=== PATIENT | male | born 1960 | race African-American/Black ===

== ENCOUNTER 2018-04-15 08:14 | Inpatient (IN) | payer MEDICARE, MEDICAID ==
[~2018-04-15] VITALS: Ht 180.3 cm; Wt 97.5 kg
[~2018-04-15 08:14] MED LIST: AMLO10TA4 PO; CARV12.545 PO; INSULIN; LISI40TA4 PO
[2018-04-15] MEDS ORDERED: SODIUM CHLORIDE 0.9% 1,000 ML IV ONE (10:04)
[2018-04-15 11:08] LABS: BASOPHILS % 1.2 % (0.0-2.0); EOSINOPHILS % 1.1 % (0.0-5.0); HEMATOCRIT. 35.2 % (42.0-52.0); HEMOGLOBIN. 11.6 g/dL (14.0-18.0); LYMPHOCYTES % 23.1 % (20.0-50.0); MEAN CORPUSCULAR HEMOGLOBIN 31.3 pg (28.0-32.0); MEAN CORPUSCULAR VOLUME 95.4 fL (80.0-94.0); MONOCYTES % 7.5 % (2.0-8.0); NEUTROPHILS % 67.1 % (40.0-76.0); PLATELET 160 x1000/uL (130-400); RED BLOOD CELL COUNT 3.69 mill/uL (4.7-6.1); RED CELL DISTRIBUTION WIDTH 14.8 % (11.6-14.6)
[2018-04-15 11:18] LABS: PROTHROMBIN TIME 10.3 sec (9.1-11.1)
[2018-04-15 11:20] LABS: CHLORIDE 113 mEq/L (98-107)
[2018-04-15] MEDS ORDERED: DEXTROSE 50% WATER 50ML SYRINGE IV ONE (11:30)
[2018-04-15] MEDS ORDERED: INSULIN REGULAR (HUMULIN R) 300UNITS/3ML IV ONE (11:30)
[2018-04-15] MEDS ORDERED: CALCIUM CHLORIDE 1GM/10ML SYR IV ONE (11:30)
[2018-04-15] MEDS ORDERED: SODIUM BICARBONATE 8.4% 1 MEQ/ML 50ML SYR IV ONE (11:30)
[2018-04-15] MEDS ORDERED: SODIUM POLYSTYRENE SULFONATE 15 G/60 ML BOT PO ONE (11:30)
[2018-04-15 14:18] LABS: CLARITY URINE CLEAR (CLEAR); KETONES URINE NEGATIVE (NEGATIVE); LEUKOCYTE ESTERASE URINE NEGATIVE (NEGATIVE); NITRITE URINE NEGATIVE (NEGATIVE); OCCULT BLOOD URINE TRACE (NEGATIVE); PH URINE 6.5 (4.5-8.0); PROTEIN URINE 2+ (NEGATIVE); UROBILINOGEN URINE 0.2 E.U./dL (0.2-1.0)
[2018-04-15 14:19] LABS: COLOR URINE PALE YELLOW (YELLOW)
[2018-04-15] MEDS ORDERED: ACETAMINOPHEN 325MG TABLET PO PRN (19:45)
[2018-04-15] MEDS ORDERED: LORAZEPAM 2MG/ML CPJ IV PRN (19:45)
[2018-04-15] MEDS ORDERED: CLONIDINE 0.1MG TABLET PO PRN (19:45)
[2018-04-15] MEDS ORDERED: NA PHOS,M-B/NA PHOS,DI-BA ENEMA 118ML PR PRN (19:45)
[2018-04-15] MEDS ORDERED: DIPHENHYDRAMINE 50MG/ML VIAL IV PRN (19:45)
[2018-04-15] MEDS ORDERED: HYDROCODONE/ACETAMINOPHEN 5/325MG TABLET PO PRN (19:45)
[2018-04-15] MEDS ORDERED: GUAIFENESIN 200MG/10ML SUGAR FREE UDC PO PRN (19:45)
[2018-04-15] MEDS ORDERED: MAGNESIUM/ALUMINUM HYDROXIDE/SIMETHICONE 30ML UDC PO PRN (19:45)
[2018-04-15] MEDS ORDERED: IPRATROPIUM/ALBUTEROL 0.5-3(2.5)MG/3ML NEB INH PRN (19:45)
[2018-04-15] MEDS ORDERED: DOCUSATE SODIUM 100MG CAPSULE PO PRN (19:45)
[2018-04-15] MEDS ORDERED: ONDANSETRON HCL 4MG/2ML INJ IV PRN (19:45)
[2018-04-15] MEDS ORDERED: HYDROMORPHONE HCL/PF 2MG/ML CPJ IV PRN (19:45)
[2018-04-15 21:30] VITALS: BP 149/84
[2018-04-15 22:00] VITALS: BP 149/84
[2018-04-15 23:00] VITALS: BP 182/104
[2018-04-15] MEDS ORDERED: IBUPROFEN 800MG TABLET PO PRN (23:45)
[2018-04-15] MEDS: FUROSEMIDE 20MG TABLET PO SCH (23:45)
[2018-04-15] MEDS ORDERED: CHOL100046 MT (23:48)
[2018-04-15] MEDS ORDERED: FURO20TA4 MT (23:48)
[2018-04-15] MEDS ORDERED: ASPI-1158 MT (23:48)
[2018-04-15] MEDS ORDERED: IBUP-2030 MT (23:48)
[2018-04-16] VITALS: BP 200/99
[2018-04-16 00:12] VITALS: BP 180/97
[2018-04-16] MEDS: CHOLECALCIFEROL (D3) 1000 UNIT TABLET PO SCH ×2 (00:13→08:46)
[2018-04-16] MEDS: AMLODIPINE 10MG TABLET PO SCH ×2 (00:13→08:48)
[2018-04-16] MEDS: CARVEDILOL 12.5MG TABLET PO SCH ×2 (00:14→08:47)
[2018-04-16] MEDS: LISINOPRIL 40MG TABLET PO SCH ×2 (00:14→08:49)
[2018-04-16 01:00] VITALS: BP 149/88
[2018-04-16 02:00] VITALS: BP 148/84
[2018-04-16 06:01] LABS: BASOPHILS % 1.4 % (0.0-2.0); EOSINOPHILS % 1.7 % (0.0-5.0); HEMATOCRIT. 30.4 % (42.0-52.0); HEMOGLOBIN. 10.2 g/dL (14.0-18.0); LYMPHOCYTES % 22.4 % (20.0-50.0); MEAN CORPUSCULAR VOLUME 95.5 fL (80.0-94.0); MEAN PLATELET VOLUME 7.5 fl (7.4-10.4); MONOCYTES % 9.4 % (2.0-8.0); NEUTROPHILS % 65.1 % (40.0-76.0); PLATELET 146 x1000/uL (130-400); RED BLOOD CELL COUNT 3.18 mill/uL (4.7-6.1); RED CELL DISTRIBUTION WIDTH 14.2 % (11.6-14.6)
[2018-04-16 06:26] LABS: CHLORIDE 115 mEq/L (98-107)
[2018-04-16 06:41] LABS: LDL CHOLESTEROL 106 mg/dL (5-100)
[2018-04-16 06:42] LABS: HDL CHOLESTEROL 37 mg/dL (40-59)
[2018-04-16] MEDS: FUROSEMIDE 20MG TABLET PO SCH (08:48)
[2018-04-16] MEDS: DOCUSATE SODIUM 100MG CAPSULE PO SCH ×2 (08:48→17:00)
[2018-04-16] MEDS: ASPIRIN 81MG EC TABLET PO SCH (08:48)
[2018-04-16] MEDS ORDERED: MEDICATION NOT ON FORMULARY EA (Aspirin (Aspirin Ec) 1 TAB) MT SCH (09:00)
[2018-04-16 15:53] LABS: CREATINE KINASE 105 IU/L (39-308)
[2018-04-16 15:54] LABS: CREATINE KINASE MB FRACTION 1.7 ng/mL (0.5-3.6)
[2018-04-16 15:56] LABS: T4 FREE 0.97 ng/dL (0.76-1.46)
[2018-04-16 20:00] VITALS: BP 135/79
[2018-04-16 22:00] VITALS: BP 109/63
[2018-04-16 23:42] LABS: CREATINE KINASE 99 IU/L (39-308)
[2018-04-16 23:43] LABS: CREATINE KINASE MB FRACTION 1.7 ng/mL (0.5-3.6)
[2018-04-17] VITALS: BP 133/85
[2018-04-17] MEDS ORDERED: DEXTROSE 50% WATER 50ML SYRINGE IV PRN (01:45)
[2018-04-17] MEDS: BLOOD SUGAR DIAGNOSTIC STRIP TEST SCH ×4 (07:50→21:00)
[2018-04-17 08:00] VITALS: BP 144/87
[2018-04-17] MEDS: INSULIN LISPRO 100 UNITS/ML SUBCUT SCH ×4 (08:00→21:00)
[2018-04-17] MEDS: CHOLECALCIFEROL (D3) 1000 UNIT TABLET PO SCH (08:52)
[2018-04-17] MEDS: DOCUSATE SODIUM 100MG CAPSULE PO SCH ×2 (08:52→16:05)
[2018-04-17] MEDS: AMLODIPINE 10MG TABLET PO SCH (08:53)
[2018-04-17] MEDS: LISINOPRIL 40MG TABLET PO SCH (08:53)
[2018-04-17] MEDS: ASPIRIN 81MG EC TABLET PO SCH (08:53)
[2018-04-17] MEDS: CARVEDILOL 12.5MG TABLET PO SCH (08:54)
[2018-04-17 08:56] LABS: CREATINE KINASE 117 IU/L (39-308)
[2018-04-17 08:57] LABS: CREATINE KINASE MB FRACTION 1.9 ng/mL (0.5-3.6)
[2018-04-17] MEDS: FUROSEMIDE 20MG TABLET PO SCH (09:03)
[2018-04-17 12:00] VITALS: BP 124/79
[2018-04-17] MEDS ORDERED: SODIUM POLYSTYRENE SULFONATE 15 G/60 ML BOT PO PRN (15:00)
[2018-04-17] MEDS ORDERED: LACTULOSE 20G/30ML UDC PO NR ×2 (15:30→19:30)
[2018-04-17 15:31] LABS: EOSINOPHILS % 2.1 % (0.0-5.0); HEMATOCRIT. 34.9 % (42.0-52.0); HEMOGLOBIN. 11.6 g/dL (14.0-18.0); LYMPHOCYTES % 22.6 % (20.0-50.0); MEAN CORPUSCULAR HEMOGLOBIN 31.6 pg (28.0-32.0); MEAN CORPUSCULAR VOLUME 95.5 fL (80.0-94.0); MEAN PLATELET VOLUME 7.8 fl (7.4-10.4); MONOCYTES % 8.7 % (2.0-8.0); NEUTROPHILS % 65.6 % (40.0-76.0); PLATELET 155 x1000/uL (130-400); RED BLOOD CELL COUNT 3.66 mill/uL (4.7-6.1); RED CELL DISTRIBUTION WIDTH 14.3 % (11.6-14.6)
[2018-04-17 16:00] VITALS: BP 121/78
[2018-04-17 16:05] LABS: HEPATITIS B SURFACE ANTIGEN NEGATIVE
[2018-04-17 16:20] LABS: CLARITY URINE CLEAR (CLEAR); COLOR URINE YELLOW (YELLOW); KETONES URINE NEGATIVE (NEGATIVE); LEUKOCYTE ESTERASE URINE NEGATIVE (NEGATIVE); NITRITE URINE NEGATIVE (NEGATIVE); OCCULT BLOOD URINE NEGATIVE (NEGATIVE); PROTEIN URINE 2+ (NEGATIVE); UROBILINOGEN URINE 0.2 E.U./dL (0.2-1.0)
[2018-04-17 16:35] LABS: HEPATITIS A AB IGM NEGATIVE (NEGATIVE)
[2018-04-17 18:22] LABS: PHOSPHORUS 3.9 mg/dL (2.5-4.9)
[2018-04-18] VITALS: BP 123/64
[2018-04-18 02:12] VITALS: BP 123/64
[2018-04-18 04:00] VITALS: BP 139/71
[2018-04-18 06:51] LABS: BASOPHILS % 0.9 % (0.0-2.0); EOSINOPHILS % 1.8 % (0.0-5.0); HEMOGLOBIN. 10.7 g/dL (14.0-18.0); LYMPHOCYTES % 21.1 % (20.0-50.0); MEAN CORPUSCULAR HEMOGLOBIN 31.9 pg (28.0-32.0); MEAN CORPUSCULAR VOLUME 95.3 fL (80.0-94.0); MEAN PLATELET VOLUME 7.7 fl (7.4-10.4); MONOCYTES % 8.4 % (2.0-8.0); NEUTROPHILS % 67.8 % (40.0-76.0); PLATELET 151 x1000/uL (130-400); RED BLOOD CELL COUNT 3.36 mill/uL (4.7-6.1); RED CELL DISTRIBUTION WIDTH 14.5 % (11.6-14.6)
[2018-04-18] MEDS: BLOOD SUGAR DIAGNOSTIC STRIP TEST SCH ×2 (07:40→12:42)
[2018-04-18] MEDS: INSULIN LISPRO 100 UNITS/ML SUBCUT SCH ×2 (08:10→12:42)
[2018-04-18] MEDS ORDERED: LACTULOSE 20G/30ML UDC PO PRN (09:00)
[2018-04-18] MEDS: ASPIRIN 81MG EC TABLET PO SCH (10:20)
[2018-04-18] MEDS: CARVEDILOL 12.5MG TABLET PO SCH (10:21)
[2018-04-18] MEDS: FUROSEMIDE 20MG TABLET PO SCH (10:21)
[2018-04-18] MEDS: CHOLECALCIFEROL (D3) 1000 UNIT TABLET PO SCH (10:21)
[2018-04-18] MEDS: AMLODIPINE 10MG TABLET PO SCH (10:22)
[2018-04-18] MEDS: DOCUSATE SODIUM 100MG CAPSULE PO SCH (10:22)
[2018-04-18 17:10] VITALS: BP 118/73
[2018-04-19 08:26] LABS: HIV SCREEN 4G Non Reactive (Non Reactive)
[2018-04-23 14:18] LABS: OXALATE UR 24 HR 16 mg/24 hr (7-44); OXALATE URINE 11 mg/L (Undefined)
== END 2018-04-18 18:30 | disposition home or self-care (01) | DRG 640 ==
LOC: ER 08:14 → EDBEDREQ 10:16 → 5EST 12:40 → EDBEDREQ 12:42 → EDBEDREQSVC 12:42 → ENRESERV 19:39 → 5EST 22:03 → 7WST 04-17 19:15
PROVIDERS: ADMIT Internal Medicine; ATTEND Internal Medicine
DX: E87.5 Hyperkalemia (principal); N17.0 Acute kidney failure with tubular necrosis; I13.0 Hypertensive heart and chronic kidney disease with heart failure and stage 1 through stage 4 chronic kidney disease, or unspecified chronic kidney disease; N18.4 Chronic kidney disease, stage 4 (severe); E11.319 Type 2 diabetes mellitus with unspecified diabetic retinopathy without macular edema; E11.22 Type 2 diabetes mellitus with diabetic chronic kidney disease; E78.5 Hyperlipidemia, unspecified; N20.0 Calculus of kidney; N28.1 Cyst of kidney, acquired; K59.00 Constipation, unspecified; E11.39 Type 2 diabetes mellitus with other diabetic ophthalmic complication; I50.9 Heart failure, unspecified; I25.10 Atherosclerotic heart disease of native coronary artery without angina pectoris; K40.90 Unilateral inguinal hernia, without obstruction or gangrene, not specified as recurrent; Z82.49 Family history of ischemic heart disease and other diseases of the circulatory system; Z91.19 Patient's noncompliance with other medical treatment and regimen; Z79.899 Other long term (current) drug therapy
CPT/HCPCS: 36415; 71045; 76770; 80048; 80061; 82340; 82507; 82550; 82553; 82575; 82962; 83036; 83735; 83880; 83945; 83970; 84100; 84105; 84156; 84300; 84439; 84443; 84484; 85379; 86705; 86709; 86803; 86850; 86900; 87340; 87389; 93005; 93306; 96361; 96374; 96375; 99291; J1815; J3490; J7030

== ENCOUNTER 2019-01-05 12:59 | Inpatient (IN) | payer MEDICARE, MEDICAID ==
[~2019-01-05] VITALS: Ht 180.3 cm; Wt 44.5 kg
[~2019-01-05 12:59] MED LIST changes: +ASPI-1158 MT; +CHOL100046 MT; +FURO20TA4 MT; +IBUP-2030 MT
[2019-01-05] MEDS ORDERED: SODIUM CHLORIDE 0.9% 1,000 ML IV ONE (14:18)
[2019-01-05] MEDS ORDERED: CEFTRIAXONE 1 G PREMIX 50 ML IV ONE (14:30)
[2019-01-05 15:27] LABS: HEMATOCRIT. 28.3 % (42.0-52.0); HEMOGLOBIN. 9.4 g/dL (14.0-18.0); MEAN CORPUSCULAR HEMOGLOBIN 31.8 pg (28.0-32.0); MEAN CORPUSCULAR VOLUME 95.3 fL (80.0-94.0); MEAN PLATELET VOLUME 7.9 fl (7.4-10.4); PLATELET 285 x1000/uL (130-400); RED BLOOD CELL COUNT 2.96 mill/uL (4.7-6.1); RED CELL DISTRIBUTION WIDTH 14.6 % (11.6-14.6)
[2019-01-05 15:31] LABS: CHLORIDE 111 mEq/L (98-107)
[2019-01-05] MEDS ORDERED: CALCIUM GLUCONATE 1,000 MG in DEXT 5% WATER 100 ML IV ONE (15:45)
[2019-01-05] MEDS ORDERED: SODIUM BICARBONATE 8.4% 1 MEQ/ML 50ML SYR IV ONE (15:45)
[2019-01-05] MEDS ORDERED: INSULIN REGULAR (HUMULIN R) 300UNITS/3ML IV ONE (15:45)
[2019-01-05] MEDS ORDERED: ALBUTEROL (0.083%) 2.5MG/3ML NEB HHN ONE (15:45)
[2019-01-05] MEDS ORDERED: DEXTROSE 50% WATER 50ML SYRINGE IV ONE (15:45)
[2019-01-05 16:57] LABS: PLATELET ESTIMATE NORMAL
[2019-01-05 19:40] LABS: CLARITY URINE CLEAR (CLEAR); COLOR URINE YELLOW (YELLOW); KETONES URINE NEGATIVE (NEGATIVE); LEUKOCYTE ESTERASE URINE 2+ (NEGATIVE); NITRITE URINE NEGATIVE (NEGATIVE); OCCULT BLOOD URINE 3+ (NEGATIVE); PROTEIN URINE 1+ (NEGATIVE); UROBILINOGEN URINE 0.2 E.U./dL (0.2-1.0)
[2019-01-05] MEDS ORDERED: NA PHOS,M-B/NA PHOS,DI-BA ENEMA 118ML PR PRN (21:30)
[2019-01-05] MEDS ORDERED: LORAZEPAM 2MG/ML CPJ IV PRN (21:30)
[2019-01-05] MEDS ORDERED: GUAIFENESIN 200MG/10ML SUGAR FREE UDC PO PRN (21:30)
[2019-01-05] MEDS ORDERED: ONDANSETRON HCL 4MG/2ML INJ IV PRN (21:30)
[2019-01-05] MEDS ORDERED: IPRATROPIUM/ALBUTEROL 0.5-3(2.5)MG/3ML NEB HHN PRN (21:30)
[2019-01-05] MEDS ORDERED: HYDROCODONE/ACETAMINOPHEN 5/325MG TABLET PO PRN (21:30)
[2019-01-05] MEDS ORDERED: DOCUSATE SODIUM 100MG CAPSULE PO PRN (21:30)
[2019-01-05] MEDS ORDERED: DIPHENHYDRAMINE 50MG/ML VIAL IV PRN (21:30)
[2019-01-05] MEDS ORDERED: INSULIN REGULAR (HUMULIN R) 300UNITS/3ML IV SCH (21:30)
[2019-01-05] MEDS ORDERED: MAGNESIUM/ALUMINUM HYDROXIDE/SIMETHICONE 30ML UDC PO PRN (21:30)
[2019-01-05] MEDS ORDERED: DEXTROSE 50% WATER 50ML SYRINGE IV SCH (21:30)
[2019-01-05] MEDS ORDERED: CLONIDINE 0.1MG TABLET PO PRN (21:30)
[2019-01-05] MEDS ORDERED: LEVOFLOXACIN 500MG PREMIX 100 ML IV SCH ×2 (21:30→23:00)
[2019-01-05] MEDS ORDERED: MORPHINE SULFATE 2 MG/ML CPJ (NOT FOR IM USE) IV PRN (21:30)
[2019-01-05] MEDS ORDERED: SODIUM BICARBONATE 8.4% 1 MEQ/ML 50ML SYR IV SCH (21:41)
[2019-01-05 22:00] VITALS: BP_SYST 127; BP_SYST 130; BP_DIAS 73; BP_DIAS 76
[2019-01-05 22:30] VITALS: BP 111/67
[2019-01-05 23:00] VITALS: BP 149/82
[2019-01-05] MEDS ORDERED: SODIUM POLYSTYRENE SULFONATE 15 G/60 ML BOT PO SCH (23:00)
[2019-01-05 23:30] VITALS: BP 141/80
[2019-01-05] MEDS: SODIUM BICARBONATE 150 MEQ in DEXTROSE 5% WATER 1,000 ML IV SCH (23:43)
[2019-01-06] VITALS (37 sets, daily range): BP systolic 78–155; BP diastolic 53–103
[2019-01-06] MEDS ORDERED: SODIUM BICARBONATE 8.4% 1 MEQ/ML 50ML SYR IV SCH (02:30)
[2019-01-06] MEDS ORDERED: DEXTROSE 50% WATER 50ML SYRINGE IV SCH (02:56)
[2019-01-06] MEDS ORDERED: INSULIN REGULAR (HUMULIN R) 300UNITS/3ML IV SCH (02:57)
[2019-01-06] MEDS ORDERED: SODIUM POLYSTYRENE SULFONATE 15 G/60 ML BOT PO SCH (04:00)
[2019-01-06 05:48] LABS: HEMATOCRIT. 27.3 % (42.0-52.0); HEMOGLOBIN. 9.2 g/dL (14.0-18.0); MEAN CORPUSCULAR HEMOGLOBIN 31.6 pg (28.0-32.0); MEAN CORPUSCULAR VOLUME 93.5 fL (80.0-94.0); MEAN PLATELET VOLUME 7.5 fl (7.4-10.4); PLATELET 270 x1000/uL (130-400); RED BLOOD CELL COUNT 2.92 mill/uL (4.7-6.1); RED CELL DISTRIBUTION WIDTH 14.1 % (11.6-14.6)
[2019-01-06 05:53] LABS: CHLORIDE 117 mEq/L (98-107)
[2019-01-06 06:04] LABS: HDL CHOLESTEROL 23 mg/dL (40-59); LDL CHOLESTEROL 86 mg/dL (5-100)
[2019-01-06 06:05] LABS: HEPATITIS B SURFACE AB < 3.1 mIU/mL
[2019-01-06 06:06] LABS: T4 FREE 1.13 ng/dL (0.76-1.46)
[2019-01-06 06:16] LABS: HEPATITIS B SURFACE ANTIGEN NEGATIVE
[2019-01-06 07:22] LABS: PLATELET ESTIMATE NORMAL
[2019-01-06] MEDS ORDERED: ENOXAPARIN 40MG/0.4ML SYR SUBCUT SCH (09:00)
[2019-01-06] MEDS ORDERED: MANNITOL 12.5G (25%) VIAL 50ML IV SCH (10:00)
[2019-01-06 10:24] LABS: T4 FREE 1.17 ng/dL (0.76-1.46)
[2019-01-06] MEDS ORDERED: LIDOCAINE HCL 1% 20ML VIAL (Pyxis) INJ ONE (11:02)
[2019-01-06] MEDS: ASPIRIN 81MG EC TABLET PO SCH (12:15)
[2019-01-06] MEDS: SODIUM BICARBONATE 150 MEQ in DEXTROSE 5% WATER 1,000 ML IV SCH (16:13)
[2019-01-06 17:14] LABS: CREATINE KINASE 113 IU/L (39-308)
[2019-01-06 17:15] LABS: CREATINE KINASE MB FRACTION < 1.0 ng/mL (0.5-3.6)
[2019-01-06] MEDS: ACETAMINOPHEN 325MG TABLET PO PRN (20:03)
[2019-01-06 23:43] LABS: CREATINE KINASE 98 IU/L (39-308)
[2019-01-06 23:44] LABS: CREATINE KINASE MB FRACTION < 1.0 ng/mL (0.5-3.6)
[2019-01-07] VITALS (35 sets, daily range): BP systolic 89–151; BP diastolic 29–96
[2019-01-07] MEDS: SODIUM BICARBONATE 150 MEQ in DEXTROSE 5% WATER 1,000 ML IV SCH (05:40)
[2019-01-07 05:51] LABS: HEMATOCRIT. 28.4 % (42.0-52.0); HEMOGLOBIN. 9.7 g/dL (14.0-18.0); MEAN CORPUSCULAR HEMOGLOBIN 31.6 pg (28.0-32.0); MEAN CORPUSCULAR VOLUME 92.5 fL (80.0-94.0); MEAN PLATELET VOLUME 7.2 fl (7.4-10.4); PLATELET 240 x1000/uL (130-400); RED BLOOD CELL COUNT 3.07 mill/uL (4.7-6.1); RED CELL DISTRIBUTION WIDTH 13.9 % (11.6-14.6)
[2019-01-07 06:03] LABS: CHLORIDE 99 mEq/L (98-107)
[2019-01-07 06:22] LABS: CREATINE KINASE 105 IU/L (39-308)
[2019-01-07 06:25] LABS: CREATINE KINASE MB FRACTION < 1.0 ng/mL (0.5-3.6)
[2019-01-07 08:01] LABS: PLATELET ESTIMATE NORMAL
[2019-01-07] MEDS: SODIUM CHLORIDE 0.9% 1,000 ML IV SCH ×2 (08:36→08:39)
[2019-01-07] MEDS: ENOXAPARIN 30MG/0.3ML SYR SUBCUT SCH (08:57)
[2019-01-07] MEDS: ASPIRIN 81MG EC TABLET PO SCH (08:57)
[2019-01-07 09:47] LABS: INR 1.2; PROTHROMBIN TIME 12.5 sec (9.6-11.0)
[2019-01-07] MEDS ORDERED: DEXTROSE 50% WATER 50ML SYRINGE IV PRN (11:00)
[2019-01-07] MEDS: LEVOFLOXACIN 250MG PREMIX 50 ML IV SCH (11:30)
[2019-01-07] MEDS: PANTOPRAZOLE 40MG DR TABLET PO SCH (11:30)
[2019-01-07] MEDS: BLOOD SUGAR DIAGNOSTIC STRIP TEST SCH ×3 (13:02→21:18)
[2019-01-07] MEDS: INSULIN LISPRO 100 UNITS/ML SUBCUT SCH ×3 (13:09→21:00)
[2019-01-08] VITALS (54 sets, daily range): BP systolic 79–157; BP diastolic 38–95
[2019-01-08] MEDS: SODIUM CHLORIDE 0.9% 1,000 ML IV SCH (03:20)
[2019-01-08 05:22] LABS: BASOPHILS % 0.3 % (0.0-2.0); EOSINOPHILS % 0.9 % (0.0-5.0); HEMATOCRIT. 25.7 % (42.0-52.0); HEMOGLOBIN. 8.7 g/dL (14.0-18.0); LYMPHOCYTES % 7.7 % (20.0-50.0); MEAN CORPUSCULAR HEMOGLOBIN 31.7 pg (28.0-32.0); MEAN CORPUSCULAR VOLUME 93.4 fL (80.0-94.0); MEAN PLATELET VOLUME 7.8 fl (7.4-10.4); MONOCYTES % 9.7 % (2.0-8.0); NEUTROPHILS % 81.4 % (40.0-76.0); PLATELET 216 x1000/uL (130-400); RED BLOOD CELL COUNT 2.75 mill/uL (4.7-6.1); RED CELL DISTRIBUTION WIDTH 13.7 % (11.6-14.6)
[2019-01-08] MEDS: BLOOD SUGAR DIAGNOSTIC STRIP TEST SCH ×4 (07:50→21:11)
[2019-01-08] MEDS: INSULIN LISPRO 100 UNITS/ML SUBCUT SCH ×4 (08:20→21:00)
[2019-01-08] MEDS: ASPIRIN 81MG EC TABLET PO SCH (09:02)
[2019-01-08] MEDS: PANTOPRAZOLE 40MG DR TABLET PO SCH (09:02)
[2019-01-08] MEDS: ENOXAPARIN 30MG/0.3ML SYR SUBCUT SCH (09:02)
[2019-01-09] VITALS: BP 165/90
[2019-01-09 04:00] VITALS: BP 129/72
[2019-01-09 07:01] LABS: BASOPHILS % 0.4 % (0.0-2.0); EOSINOPHILS % 0.8 % (0.0-5.0); HEMATOCRIT. 26.2 % (42.0-52.0); HEMOGLOBIN. 8.9 g/dL (14.0-18.0); LYMPHOCYTES % 9.9 % (20.0-50.0); MEAN CORPUSCULAR HEMOGLOBIN 31.6 pg (28.0-32.0); MEAN CORPUSCULAR VOLUME 92.9 fL (80.0-94.0); MEAN PLATELET VOLUME 7.5 fl (7.4-10.4); MONOCYTES % 11.1 % (2.0-8.0); NEUTROPHILS % 77.8 % (40.0-76.0); PLATELET 201 x1000/uL (130-400); RED BLOOD CELL COUNT 2.82 mill/uL (4.7-6.1); RED CELL DISTRIBUTION WIDTH 13.5 % (11.6-14.6)
[2019-01-09 08:00] VITALS: BP 134/78
[2019-01-09] MEDS: INSULIN LISPRO 100 UNITS/ML SUBCUT SCH ×4 (08:10→21:00)
[2019-01-09] MEDS: BLOOD SUGAR DIAGNOSTIC STRIP TEST SCH ×4 (08:17→21:17)
[2019-01-09] MEDS: ENOXAPARIN 30MG/0.3ML SYR SUBCUT SCH (09:24)
[2019-01-09] MEDS: PANTOPRAZOLE 40MG DR TABLET PO SCH (09:25)
[2019-01-09] MEDS: ASPIRIN 81MG EC TABLET PO SCH (09:25)
[2019-01-09 12:00] VITALS: BP 114/64
[2019-01-09] MEDS: LEVOFLOXACIN 250MG PREMIX 50 ML IV SCH (14:19)
[2019-01-09] MEDS: FUROSEMIDE 20MG TABLET PO SCH (14:31)
[2019-01-09 16:00] VITALS: BP 130/72
[2019-01-09 20:00] VITALS: BP 100/65
[2019-01-09] MEDS ORDERED: EPOETIN ALFA 10000UNITS/ML VIAL SUBCUT SCH (21:00)
[2019-01-10] VITALS: BP 118/72
[2019-01-10 04:00] VITALS: BP 144/80
[2019-01-10] MEDS: ACETAMINOPHEN 325MG TABLET PO PRN (04:48)
[2019-01-10 07:35] LABS: BASOPHILS % 0.6 % (0.0-2.0); EOSINOPHILS % 0.9 % (0.0-5.0); HEMATOCRIT. 25.8 % (42.0-52.0); HEMOGLOBIN. 8.8 g/dL (14.0-18.0); LYMPHOCYTES % 10.8 % (20.0-50.0); MEAN CORPUSCULAR HEMOGLOBIN 31.4 pg (28.0-32.0); MEAN CORPUSCULAR VOLUME 92.5 fL (80.0-94.0); MEAN PLATELET VOLUME 7.8 fl (7.4-10.4); NEUTROPHILS % 78.7 % (40.0-76.0); PLATELET 213 x1000/uL (130-400); RED BLOOD CELL COUNT 2.79 mill/uL (4.7-6.1); RED CELL DISTRIBUTION WIDTH 13.2 % (11.6-14.6)
[2019-01-10 08:00] VITALS: BP 147/81
[2019-01-10] MEDS: INSULIN LISPRO 100 UNITS/ML SUBCUT SCH ×4 (08:10→20:19)
[2019-01-10] MEDS: BLOOD SUGAR DIAGNOSTIC STRIP TEST SCH ×4 (08:17→20:18)
[2019-01-10] MEDS: PANTOPRAZOLE 40MG DR TABLET PO SCH (09:34)
[2019-01-10] MEDS: FUROSEMIDE 20MG TABLET PO SCH (09:34)
[2019-01-10] MEDS: ENOXAPARIN 30MG/0.3ML SYR SUBCUT SCH (09:35)
[2019-01-10] MEDS: ASPIRIN 81MG EC TABLET PO SCH (09:35)
[2019-01-10 12:00] VITALS: BP 113/81
[2019-01-10 16:00] VITALS: BP 104/55
[2019-01-10 20:00] VITALS: BP 136/80
[2019-01-11] VITALS (7 sets, daily range): BP systolic 107–146; BP diastolic 43–80
[2019-01-11] MEDS: ACETAMINOPHEN 325MG TABLET PO PRN ×2 (04:28→17:40)
[2019-01-11] MEDS: BLOOD SUGAR DIAGNOSTIC STRIP TEST SCH ×4 (06:27→20:19)
[2019-01-11] MEDS: PANTOPRAZOLE 40MG DR TABLET PO SCH (06:49)
[2019-01-11] MEDS: ENOXAPARIN 30MG/0.3ML SYR SUBCUT SCH (09:02)
[2019-01-11] MEDS: ASPIRIN 81MG EC TABLET PO SCH (09:02)
[2019-01-11] MEDS: FUROSEMIDE 20MG TABLET PO SCH ×2 (09:03→17:37)
[2019-01-11] MEDS: INSULIN LISPRO 100 UNITS/ML SUBCUT SCH ×4 (09:04→20:20)
[2019-01-11] MEDS ORDERED: EPOETIN ALFA 10000UNITS/ML VIAL SUBCUT NR (23:30)
[2019-01-12] VITALS (7 sets, daily range): BP systolic 94–127; BP diastolic 54–73
[2019-01-12 06:05] LABS: CLARITY URINE CLOUDY (CLEAR); COLOR URINE YELLOW (YELLOW); KETONES URINE NEGATIVE (NEGATIVE); LEUKOCYTE ESTERASE URINE 1+ (NEGATIVE); NITRITE URINE NEGATIVE (NEGATIVE); OCCULT BLOOD URINE 2+ (NEGATIVE); PROTEIN URINE 2+ (NEGATIVE); SPECIFIC GRAVITY URINE 1.012 (1.005-1.030); UROBILINOGEN URINE 0.2 E.U./dL (0.2-1.0)
[2019-01-12] MEDS: BLOOD SUGAR DIAGNOSTIC STRIP TEST SCH ×4 (07:51→21:25)
[2019-01-12] MEDS: INSULIN LISPRO 100 UNITS/ML SUBCUT SCH ×4 (07:51→21:00)
[2019-01-12 07:53] LABS: BASOPHILS % 0.5 % (0.0-2.0); EOSINOPHILS % 0.4 % (0.0-5.0); HEMATOCRIT. 25.9 % (42.0-52.0); HEMOGLOBIN. 8.9 g/dL (14.0-18.0); LYMPHOCYTES % 7.9 % (20.0-50.0); MEAN CORPUSCULAR HEMOGLOBIN 31.7 pg (28.0-32.0); MEAN CORPUSCULAR VOLUME 92.4 fL (80.0-94.0); MEAN PLATELET VOLUME 7.5 fl (7.4-10.4); MONOCYTES % 7.9 % (2.0-8.0); NEUTROPHILS % 83.3 % (40.0-76.0); PLATELET 220 x1000/uL (130-400); RED BLOOD CELL COUNT 2.81 mill/uL (4.7-6.1); RED CELL DISTRIBUTION WIDTH 13.4 % (11.6-14.6)
[2019-01-12] MEDS: PANTOPRAZOLE 40MG DR TABLET PO SCH (08:33)
[2019-01-12] MEDS: FUROSEMIDE 20MG TABLET PO SCH ×2 (08:33→17:20)
[2019-01-12] MEDS: ASPIRIN 81MG EC TABLET PO SCH (08:34)
[2019-01-12] MEDS: ENOXAPARIN 30MG/0.3ML SYR SUBCUT SCH (08:34)
[2019-01-13] VITALS: BP_SYST 66
[2019-01-13 04:00] VITALS: BP 94/56
[2019-01-13 07:32] LABS: BASOPHILS % 0.4 % (0.0-2.0); EOSINOPHILS % 0.3 % (0.0-5.0); HEMOGLOBIN. 8.6 g/dL (14.0-18.0); LYMPHOCYTES % 8.7 % (20.0-50.0); MEAN CORPUSCULAR HEMOGLOBIN 31.7 pg (28.0-32.0); MEAN CORPUSCULAR VOLUME 92.6 fL (80.0-94.0); MEAN PLATELET VOLUME 7.9 fl (7.4-10.4); MONOCYTES % 8.7 % (2.0-8.0); NEUTROPHILS % 81.9 % (40.0-76.0); PLATELET 230 x1000/uL (130-400); RED CELL DISTRIBUTION WIDTH 13.3 % (11.6-14.6)
[2019-01-13] MEDS: BLOOD SUGAR DIAGNOSTIC STRIP TEST SCH ×4 (07:40→20:33)
[2019-01-13 08:00] VITALS: BP 130/72
[2019-01-13] MEDS: INSULIN LISPRO 100 UNITS/ML SUBCUT SCH ×4 (08:10→20:38)
[2019-01-13] MEDS: FUROSEMIDE 20MG TABLET PO SCH ×2 (08:22→17:35)
[2019-01-13] MEDS: FAMOTIDINE 20MG TABLET PO SCH (08:23)
[2019-01-13] MEDS: ASPIRIN 81MG EC TABLET PO SCH (08:23)
[2019-01-13] MEDS: ENOXAPARIN 30MG/0.3ML SYR SUBCUT SCH (08:23)
[2019-01-13 12:00] VITALS: BP 136/73
[2019-01-13 16:00] VITALS: BP 119/68
[2019-01-13 20:00] VITALS: BP 127/58
[2019-01-13] MEDS ORDERED: EPOETIN ALFA 10000UNITS/ML VIAL SUBCUT NR (23:30)
[2019-01-14] VITALS: BP 117/59
[2019-01-14] MEDS ORDERED: EPOETIN ALFA 10000UNITS/ML VIAL SUBCUT NR
[2019-01-14 04:00] VITALS: BP 114/68
[2019-01-14] MEDS: BLOOD SUGAR DIAGNOSTIC STRIP TEST SCH ×4 (07:40→21:00)
[2019-01-14 08:00] VITALS: BP 124/72
[2019-01-14] MEDS: ASPIRIN 81MG EC TABLET PO SCH (08:48)
[2019-01-14] MEDS: FUROSEMIDE 20MG TABLET PO SCH ×2 (08:48→17:00)
[2019-01-14] MEDS: FAMOTIDINE 20MG TABLET PO SCH (08:48)
[2019-01-14] MEDS: ENOXAPARIN 30MG/0.3ML SYR SUBCUT SCH (08:49)
[2019-01-14] MEDS: INSULIN LISPRO 100 UNITS/ML SUBCUT SCH ×4 (09:04→20:53)
[2019-01-14 12:00] VITALS: BP 136/82
[2019-01-14 16:00] VITALS: BP 130/74
[2019-01-14 20:00] VITALS: BP 130/75
[2019-01-14] MEDS ORDERED: METOPROLOL TARTRATE 25MG TABLET PO SCH (21:00)
[2019-01-15] VITALS: BP 115/77
[2019-01-15] MEDS ORDERED: EPOETIN ALFA 4000UNITS/ML VIAL SUBCUT NR
[2019-01-15 04:00] VITALS: BP 129/75
[2019-01-15] MEDS: ACETAMINOPHEN 325MG TABLET PO PRN (04:10)
[2019-01-15] MEDS: BLOOD SUGAR DIAGNOSTIC STRIP TEST SCH ×4 (07:40→20:32)
[2019-01-15 08:00] VITALS: BP 121/77
[2019-01-15] MEDS: INSULIN LISPRO 100 UNITS/ML SUBCUT SCH ×4 (08:10→20:40)
[2019-01-15] MEDS: ASPIRIN 81MG EC TABLET PO SCH (08:57)
[2019-01-15] MEDS: FAMOTIDINE 20MG TABLET PO SCH (08:59)
[2019-01-15] MEDS: ENOXAPARIN 30MG/0.3ML SYR SUBCUT SCH (08:59)
[2019-01-15] MEDS: FUROSEMIDE 20MG TABLET PO SCH ×2 (08:59→17:54)
[2019-01-15 12:00] VITALS: BP 127/79
[2019-01-15 16:00] VITALS: BP 125/81
[2019-01-15 20:00] VITALS: BP 92/58
[2019-01-16] VITALS: BP 136/82
[2019-01-16 04:00] VITALS: BP 126/64
[2019-01-16] MEDS: BLOOD SUGAR DIAGNOSTIC STRIP TEST SCH ×2 (06:10→12:40)
[2019-01-16 08:17] VITALS: BP 143/77
[2019-01-16] MEDS: ENOXAPARIN 30MG/0.3ML SYR SUBCUT SCH (09:01)
[2019-01-16] MEDS: FAMOTIDINE 20MG TABLET PO SCH (09:01)
[2019-01-16] MEDS: FUROSEMIDE 20MG TABLET PO SCH (09:01)
[2019-01-16] MEDS: ASPIRIN 81MG EC TABLET PO SCH (09:01)
[2019-01-16] MEDS: INSULIN LISPRO 100 UNITS/ML SUBCUT SCH ×2 (09:02→13:39)
[2019-01-16 11:35] VITALS: BP 114/70
[2019-01-16 16:34] VITALS: BP 100/66
[2019-01-16] MEDS ORDERED: EPOETIN ALFA 10000UNITS/ML VIAL SUBCUT NR (21:00)
== END 2019-01-16 18:15 | disposition home or self-care (01) | DRG 682 ==
LOC: ER 15:49 → CVICU 16:37 → ENRESERV 18:09 → CANRESERV 18:09 → EDBEDREQSVC 18:15 → EDBEDREQTM 18:15 → EDBEDREQ 18:15 → ENRESERV 19:34 → 7WST 01-08 22:45
PROVIDERS: ADMIT Internal Medicine; ATTEND Internal Medicine
PROC: 5A1D70Z Performance of Urinary Filtration, Intermittent, Less than 6 Hours Per Day (ICD-10-PCS; 2019-01-05)
PROC: 02HV33Z Insertion of Infusion Device into Superior Vena Cava, Percutaneous Approach (ICD-10-PCS; principal; 2019-01-06)
PROC: B548ZZA Ultrasonography of Superior Vena Cava, Guidance (ICD-10-PCS; 2019-01-06)
PROC: B5181ZA Fluoroscopy of Superior Vena Cava using Low Osmolar Contrast, Guidance (ICD-10-PCS; 2019-01-06)
PROC: 5A1D70Z Performance of Urinary Filtration, Intermittent, Less than 6 Hours Per Day (ICD-10-PCS; 2019-01-08)
DX: N17.9 Acute kidney failure, unspecified (principal); E43 Unspecified severe protein-calorie malnutrition; N39.0 Urinary tract infection, site not specified; Z68.1 Body mass index [BMI] 19.9 or less, adult; I12.0 Hypertensive chronic kidney disease with stage 5 chronic kidney disease or end stage renal disease; E87.1 Hypo-osmolality and hyponatremia; E87.2 Acidosis; E87.70 Fluid overload, unspecified; N18.6 End stage renal disease; E87.5 Hyperkalemia; H54.8 Legal blindness, as defined in USA; E11.610 Type 2 diabetes mellitus with diabetic neuropathic arthropathy; D64.9 Anemia, unspecified; E78.5 Hyperlipidemia, unspecified; E11.22 Type 2 diabetes mellitus with diabetic chronic kidney disease; Z99.2 Dependence on renal dialysis; Z86.11 Personal history of tuberculosis; Z79.899 Other long term (current) drug therapy; Z87.01 Personal history of pneumonia (recurrent); Z87.891 Personal history of nicotine dependence; Z98.49 Cataract extraction status, unspecified eye; Z91.15 Patient's noncompliance with renal dialysis
CPT/HCPCS: 36415; 71045; 76770; 76937; 80048; 80061; 81003; 82550; 82553; 82962; 83036; 83880; 84100; 84132; 84439; 84443; 84484; 85379; 86705; 86706; 86803; 87070; 87340; 93005; 93306; 94640; 97162; 97166; 99285; C1752; J0610; J0885; J1650; J1815; J1956; J2150; J3490; J7030; J7040; J7060; J7070; J7611

== ENCOUNTER 2019-03-19 10:33 | Inpatient (IN) | payer MEDICARE, MEDICAID ==
[~2019-03-19] VITALS: Ht 180.3 cm; Wt 97.6 kg
[2019-03-19] MEDS ORDERED: CLONIDINE 0.1MG TABLET PO ONE (11:30)
[2019-03-19 11:59] LABS: CHLORIDE 105 mEq/L (98-107)
[2019-03-19 12:00] LABS: BASOPHILS % 1.1 % (0.0-2.0); EOSINOPHILS % 0.7 % (0.0-5.0); HEMATOCRIT. 21.4 % (42.0-52.0); HEMOGLOBIN. 7.2 g/dL (14.0-18.0); INR 1.1; LYMPHOCYTES % 10.9 % (20.0-50.0); MEAN CORPUSCULAR HEMOGLOBIN 30.4 pg (28.0-32.0); MEAN CORPUSCULAR VOLUME 90.1 fL (80.0-94.0); MEAN PLATELET VOLUME 6.9 fl (7.4-10.4); MONOCYTES % 6.9 % (2.0-8.0); NEUTROPHILS % 80.4 % (40.0-76.0); PLATELET 394 x1000/uL (130-400); RED BLOOD CELL COUNT 2.38 mill/uL (4.7-6.1); RED CELL DISTRIBUTION WIDTH 16.6 % (11.6-14.6)
[2019-03-19] MEDS ORDERED: FUROSEMIDE 40MG/4ML VIAL IVP ONE (12:45)
[2019-03-19] MEDS ORDERED: CLONIDINE 0.1MG TABLET PO PRN (14:30)
[2019-03-19] MEDS ORDERED: MAGNESIUM/ALUMINUM HYDROXIDE/SIMETHICONE 30ML UDC PO PRN (14:30)
[2019-03-19] MEDS ORDERED: ACETAMINOPHEN 325MG TABLET PO PRN (14:30)
[2019-03-19] MEDS ORDERED: DEXTROSE 50% WATER 50ML SYRINGE IV PRN (14:30)
[2019-03-19] MEDS ORDERED: LISINOPRIL 20MG TABLET PO SCH ×2 (14:30→17:15)
[2019-03-19] MEDS ORDERED: DIPHENHYDRAMINE 50MG/ML VIAL IV PRN (14:30)
[2019-03-19] MEDS ORDERED: HYDRALAZINE 20MG/ML VIAL IV PRN (14:30)
[2019-03-19] MEDS ORDERED: ONDANSETRON HCL 4MG/2ML INJ IV PRN (14:30)
[2019-03-19] MEDS: ENOXAPARIN 40MG/0.4ML SYR SUBCUT SCH (16:47)
[2019-03-19] MEDS: BLOOD SUGAR DIAGNOSTIC STRIP TEST SCH ×2 (17:35→21:00)
[2019-03-19] MEDS: INSULIN LISPRO 100 UNITS/ML SUBCUT SCH ×2 (18:20→21:00)
[2019-03-19 20:50] VITALS: BP 171/92
[2019-03-19 22:00] VITALS: BP 171/92
[2019-03-19] MEDS: SODIUM CHLORIDE 0.9% INJ 3ML FLUSH IVF SCH (23:12)
[2019-03-20] VITALS (7 sets, daily range): BP systolic 130–166; BP diastolic 76–94
[2019-03-20] MEDS: LISINOPRIL 20MG TABLET PO SCH ×3 (01:29→18:19)
[2019-03-20] MEDS ORDERED: EPOETIN ALFA 4000UNITS/ML VIAL SUBCUT SCH ×2 (02:00→21:00)
[2019-03-20] MEDS: FUROSEMIDE 40MG/4ML VIAL IVP SCH ×2 (06:22→18:19)
[2019-03-20] MEDS: SODIUM CHLORIDE 0.9% INJ 3ML FLUSH IVF SCH ×3 (06:22→21:40)
[2019-03-20] MEDS: BLOOD SUGAR DIAGNOSTIC STRIP TEST SCH ×4 (06:22→21:39)
[2019-03-20] MEDS: INSULIN LISPRO 100 UNITS/ML SUBCUT SCH ×4 (07:04→21:40)
[2019-03-20 07:14] LABS: EOSINOPHILS % 1.2 % (0.0-5.0); LYMPHOCYTES % 13.4 % (20.0-50.0); MEAN CORPUSCULAR HEMOGLOBIN 30.6 pg (28.0-32.0); MEAN CORPUSCULAR VOLUME 90.2 fL (80.0-94.0); MEAN PLATELET VOLUME 6.7 fl (7.4-10.4); NEUTROPHILS % 76.4 % (40.0-76.0); PLATELET 351 x1000/uL (130-400); RED BLOOD CELL COUNT 2.15 mill/uL (4.7-6.1); RED CELL DISTRIBUTION WIDTH 16.4 % (11.6-14.6)
[2019-03-20 07:38] LABS: PHOSPHORUS 3.3 mg/dL (2.5-4.9)
[2019-03-20 07:54] LABS: HEMATOCRIT. 19.4 % (42.0-52.0); HEMOGLOBIN. 6.6 g/dL (14.0-18.0)
[2019-03-20] MEDS ORDERED: AMLODIPINE 10MG TABLET PO SCH (09:00)
[2019-03-20] MEDS ORDERED: FUROSEMIDE 40MG/4ML VIAL IVP SCH (09:00)
[2019-03-20] MEDS ORDERED: INFLUENZA VIRUS VACCINE(AFLURIA) 0.5ML SYR IM ONE (09:00)
[2019-03-20] MEDS: IRON SUCROSE COMPLEX 100 MG/5 ML ML IV SCH (09:00)
[2019-03-20] MEDS ORDERED: POTASSIUM CHLORIDE 20MEQ TABLET SR PO NR ×3 (09:30→17:00)
[2019-03-20] MEDS: FERROUS SULFATE 325MG TABLET PO SCH (09:48)
[2019-03-20] MEDS: AMLODIPINE 10MG TABLET PO SCH ×2 (09:48→21:39)
[2019-03-20] MEDS ORDERED: MAGNESIUM 2 G PREMIX 50 ML IV NR (10:30)
[2019-03-20] MEDS: ENOXAPARIN 40MG/0.4ML SYR SUBCUT SCH (14:30)
[2019-03-20] MEDS: DOCUSATE SODIUM 250MG CAPSULE PO SCH (18:19)
[2019-03-20 19:24] LABS: BASOPHILS % 0.9 % (0.0-2.0); EOSINOPHILS % 0.9 % (0.0-5.0); HEMATOCRIT. 24.3 % (42.0-52.0); HEMOGLOBIN. 8.2 g/dL (14.0-18.0); LYMPHOCYTES % 11.6 % (20.0-50.0); MEAN CORPUSCULAR HEMOGLOBIN 30.7 pg (28.0-32.0); MEAN CORPUSCULAR VOLUME 90.9 fL (80.0-94.0); MEAN PLATELET VOLUME 6.4 fl (7.4-10.4); MONOCYTES % 7.1 % (2.0-8.0); NEUTROPHILS % 79.5 % (40.0-76.0); PLATELET 348 x1000/uL (130-400); RED BLOOD CELL COUNT 2.67 mill/uL (4.7-6.1); RED CELL DISTRIBUTION WIDTH 15.8 % (11.6-14.6)
[2019-03-21 00:47] VITALS: BP 157/82
[2019-03-21] MEDS: LISINOPRIL 20MG TABLET PO SCH ×3 (01:04→17:28)
[2019-03-21 04:00] VITALS: BP 139/82
[2019-03-21] MEDS: SODIUM CHLORIDE 0.9% INJ 3ML FLUSH IVF SCH ×3 (05:11→22:22)
[2019-03-21] MEDS: BLOOD SUGAR DIAGNOSTIC STRIP TEST SCH ×4 (06:24→21:00)
[2019-03-21] MEDS: FUROSEMIDE 40MG/4ML VIAL IVP SCH ×2 (06:24→17:36)
[2019-03-21 07:06] LABS: BASOPHILS % 0.8 % (0.0-2.0); EOSINOPHILS % 0.5 % (0.0-5.0); HEMOGLOBIN. 7.9 g/dL (14.0-18.0); LYMPHOCYTES % 10.8 % (20.0-50.0); MEAN CORPUSCULAR HEMOGLOBIN 30.9 pg (28.0-32.0); MEAN CORPUSCULAR VOLUME 89.6 fL (80.0-94.0); MEAN PLATELET VOLUME 6.8 fl (7.4-10.4); MONOCYTES % 7.3 % (2.0-8.0); NEUTROPHILS % 80.6 % (40.0-76.0); PLATELET 335 x1000/uL (130-400); RED BLOOD CELL COUNT 2.56 mill/uL (4.7-6.1)
[2019-03-21 07:12] LABS: PHOSPHORUS 2.1 mg/dL (2.5-4.9)
[2019-03-21 08:00] VITALS: BP 144/89
[2019-03-21] MEDS: INSULIN LISPRO 100 UNITS/ML SUBCUT SCH ×4 (09:11→22:29)
[2019-03-21] MEDS: AMLODIPINE 10MG TABLET PO SCH ×2 (09:16→22:25)
[2019-03-21] MEDS: IRON SUCROSE COMPLEX 100 MG/5 ML ML IV SCH (09:16)
[2019-03-21] MEDS: DOCUSATE SODIUM 250MG CAPSULE PO SCH ×2 (09:17→17:36)
[2019-03-21] MEDS: FERROUS SULFATE 325MG TABLET PO SCH (09:17)
[2019-03-21 12:00] VITALS: BP 123/72
[2019-03-21] MEDS ORDERED: POTASSIUM CHLORIDE 20MEQ TABLET SR PO NR (13:15)
[2019-03-21] MEDS: ENOXAPARIN 40MG/0.4ML SYR SUBCUT SCH (14:30)
[2019-03-21] MEDS ORDERED: POTASSIUM PHOS,M-BASIC-D-BASIC 15 MMOL in DEXT 5% WATER 245 ML IV SCH (15:00)
[2019-03-21] MEDS ORDERED: MAGNESIUM 2 G PREMIX 50 ML IV SCH (15:00)
[2019-03-21 16:00] VITALS: BP 104/59
[2019-03-21 20:00] VITALS: BP 110/68
[2019-03-22] VITALS (7 sets, daily range): BP systolic 126–139; BP diastolic 71–79
[2019-03-22] MEDS: LISINOPRIL 20MG TABLET PO SCH ×2 (03:09→12:26)
[2019-03-22] MEDS: SODIUM CHLORIDE 0.9% INJ 3ML FLUSH IVF SCH ×2 (05:06→14:00)
[2019-03-22] MEDS: BLOOD SUGAR DIAGNOSTIC STRIP TEST SCH ×2 (06:29→12:08)
[2019-03-22] MEDS: FUROSEMIDE 40MG/4ML VIAL IVP SCH (06:29)
[2019-03-22 07:39] LABS: BASOPHILS % 0.6 % (0.0-2.0); EOSINOPHILS % 0.8 % (0.0-5.0); HEMATOCRIT. 22.1 % (42.0-52.0); HEMOGLOBIN. 7.8 g/dL (14.0-18.0); LYMPHOCYTES % 9.8 % (20.0-50.0); MEAN CORPUSCULAR HEMOGLOBIN 31.7 pg (28.0-32.0); MEAN CORPUSCULAR VOLUME 89.7 fL (80.0-94.0); MEAN PLATELET VOLUME 6.9 fl (7.4-10.4); NEUTROPHILS % 82.8 % (40.0-76.0); PLATELET 297 x1000/uL (130-400); RED BLOOD CELL COUNT 2.46 mill/uL (4.7-6.1); RED CELL DISTRIBUTION WIDTH 15.8 % (11.6-14.6)
[2019-03-22] MEDS: INSULIN LISPRO 100 UNITS/ML SUBCUT SCH ×2 (07:41→12:25)
[2019-03-22 08:02] LABS: PHOSPHORUS 2.9 mg/dL (2.5-4.9)
[2019-03-22] MEDS: IRON SUCROSE COMPLEX 100 MG/5 ML ML IV SCH (08:37)
[2019-03-22] MEDS: AMLODIPINE 10MG TABLET PO SCH (08:38)
[2019-03-22] MEDS: DOCUSATE SODIUM 250MG CAPSULE PO SCH (08:38)
[2019-03-22] MEDS: FERROUS SULFATE 325MG TABLET PO SCH (08:38)
[2019-03-22] MEDS: ENOXAPARIN 40MG/0.4ML SYR SUBCUT SCH (14:06)
== END 2019-03-22 15:05 | disposition home or self-care (01) | DRG 682 ==
LOC: ER 10:33 → SUPCPDRO 13:43 → EDBEDREQ 14:15 → 6WST 14:17 → ENRESERV 18:37
PROVIDERS: ADMIT Internal Medicine; ATTEND Internal Medicine
PROC: 30233N1 Transfusion of Nonautologous Red Blood Cells into Peripheral Vein, Percutaneous Approach (ICD-10-PCS; principal; 2019-03-20)
DX: I12.0 Hypertensive chronic kidney disease with stage 5 chronic kidney disease or end stage renal disease (principal); N18.6 End stage renal disease; E43 Unspecified severe protein-calorie malnutrition; E11.319 Type 2 diabetes mellitus with unspecified diabetic retinopathy without macular edema; E11.22 Type 2 diabetes mellitus with diabetic chronic kidney disease; D63.8 Anemia in other chronic diseases classified elsewhere; E83.39 Other disorders of phosphorus metabolism; E83.42 Hypomagnesemia; E87.6 Hypokalemia; H54.8 Legal blindness, as defined in USA; Z82.49 Family history of ischemic heart disease and other diseases of the circulatory system; Z83.3 Family history of diabetes mellitus; Z98.49 Cataract extraction status, unspecified eye; Z79.899 Other long term (current) drug therapy; Z68.30 Body mass index [BMI] 30.0-30.9, adult
CPT/HCPCS: 36415; 71045; 80048; 80053; 82270; 82962; 83036; 83540; 83550; 83735; 83880; 84100; 84484; 85025; 86850; 86900; 86920; 93005; 93970; 99285; J0885; J1815; J1940; J3475; J3490; J7040; J7060; P9016

== ENCOUNTER 2019-10-18 06:32 | Inpatient (IN) | payer MEDICARE, MEDICAID ==
[~2019-10-18] VITALS: Ht 180.3 cm; Wt 67.1 kg
[~2019-10-18 06:32] MED LIST changes: +PANT40SU MT; +SEVE800T8 PO
[2019-10-18] MEDS ORDERED: LISINOPRIL 20MG TABLET PO ONE (07:15)
[2019-10-18] MEDS ORDERED: AMLODIPINE 10MG TABLET PO ONE (07:15)
[2019-10-18] MEDS ORDERED: FUROSEMIDE 20MG/2ML VIAL IVP ONE (07:15)
[2019-10-18 07:55] LABS: BASOPHILS % 1.1 % (0.0-2.0); EOSINOPHILS % 1.5 % (0.0-5.0); HEMATOCRIT. 24.1 % (42.0-52.0); HEMOGLOBIN. 8.1 g/dL (14.0-18.0); LYMPHOCYTES % 17.6 % (20.0-50.0); MEAN CORPUSCULAR HEMOGLOBIN 31.7 pg (28.0-32.0); MEAN CORPUSCULAR VOLUME 94.3 fL (80.0-94.0); MEAN PLATELET VOLUME 7.6 fl (7.4-10.4); MONOCYTES % 9.1 % (2.0-8.0); NEUTROPHILS % 70.7 % (40.0-76.0); PLATELET 155 x1000/uL (130-400); RED BLOOD CELL COUNT 2.56 mill/uL (4.7-6.1); RED CELL DISTRIBUTION WIDTH 16.3 % (11.6-14.6)
[2019-10-18 08:00] LABS: CHLORIDE 110 mEq/L (98-107)
[2019-10-18 08:05] LABS: ETHANOL BLOOD < 10 mg/dL
[2019-10-18 08:06] LABS: PHOSPHORUS 4.8 mg/dL (2.5-4.9)
[2019-10-18 08:08] LABS: CREATINE KINASE 128 IU/L (39-308); CREATINE KINASE MB FRACTION 1.8 ng/mL (0.5-3.6)
[2019-10-18] MEDS ORDERED: SODIUM BICARBONATE 8.4% 1 MEQ/ML 50ML SYR IV ONE (08:30)
[2019-10-18 08:31] LABS: *AMPHETAMINES SCREEN URINE NEGATIVE (NEGATIVE); *BARBITURATES SCREEN URINE NEGATIVE (NEGATIVE); *BENZODIAZEPINES SCREEN URINE NEGATIVE (NEGATIVE); CANNABINOID URINE SCREEN NEGATIVE (NEGATIVE); OPIATES URINE SCREEN NEGATIVE (NEGATIVE); PHENCYCLIDINE URINE SCREEN NEGATIVE (NEGATIVE)
[2019-10-18 08:32] LABS: *COCAINE SCREEN URINE NEGATIVE (NEGATIVE); METHADONE URINE SCREEN NEGATIVE (NEGATIVE)
[2019-10-18 08:57] LABS: BG BASE EXCESS -8.1 mmol/L (-2.0-2.0); BG DEOXYHEMOGLOBIN 1.7 % (0.0-5.0); BG FRACTION INSPIRED OXYGEN 21; BG HCO3 ACT 16.9 mmol/L (22.0-26.0); BG METHEMOGLOBIN 0.3 % (0.0-1.5); BG OXYGEN SATURATION 98.3 % (92.0-98.5); BG PCO2 32.3 mmHg (35.0-45.0); BG PH 7.336 (7.350-7.450); BG PO2 134.4 mmHg (75.0-100.0); BG SAMPLE SITE RIGHT RADIAL; BG TOTAL HEMOGLOBIN 7.8 g/dL (12.0-18.0); BG VENT MODE ROOM AIR
[2019-10-18] MEDS ORDERED: ACETAMINOPHEN 325MG TABLET PO PRN (09:30)
[2019-10-18] MEDS ORDERED: ONDANSETRON HCL 4MG/2ML INJ IV PRN (09:30)
[2019-10-18] MEDS: AMLODIPINE 10MG TABLET PO SCH (10:40)
[2019-10-18 15:43] VITALS: BP 136/68
[2019-10-18 16:00] VITALS: BP 126/65
[2019-10-18 20:00] VITALS: BP 124/65
[2019-10-18] MEDS ORDERED: SODIUM POLYSTYRENE SULFONATE 15 G/60 ML BOT PO PRN (23:45)
[2019-10-19] VITALS: BP 130/68
[2019-10-19] MEDS ORDERED: DEXTROSE 50% WATER 50ML SYRINGE IV PRN (01:30)
[2019-10-19 04:00] VITALS: BP 108/61
[2019-10-19] MEDS ORDERED: EPOETIN ALFA 4000UNITS/ML VIAL SUBCUT NR (06:00)
[2019-10-19] MEDS: BLOOD SUGAR DIAGNOSTIC STRIP TEST SCH ×4 (06:09→21:07)
[2019-10-19] MEDS: INSULIN LISPRO 100 UNITS/ML SUBCUT SCH ×4 (07:40→21:00)
[2019-10-19 07:54] LABS: CHLORIDE 112 mEq/L (98-107)
[2019-10-19 08:00] VITALS: BP 142/81
[2019-10-19 08:02] LABS: HEMATOCRIT 22.2 % (42.0-52.0); HEMOGLOBIN 7.5 g/dL (14.0-18.0); MEAN CORPUSCULAR HEMOGLOBIN 31.8 pg (28.0-32.0); MEAN CORPUSCULAR VOLUME 93.7 fL (80.0-94.0); PLATELET 144 x1000/uL (130-400); RED BLOOD CELL COUNT 2.37 mill/uL (4.7-6.1); RED CELL DISTRIBUTION WIDTH 15.8 % (11.6-14.6)
[2019-10-19] MEDS ORDERED: CITRIC ACID/SODIUM CITRATE SOLN 15ML UDC PO SCH (09:00)
[2019-10-19] MEDS: IRON SUCROSE COMPLEX 100 MG/5 ML ML IV SCH (09:29)
[2019-10-19] MEDS: FUROSEMIDE 20MG TABLET PO SCH (09:29)
[2019-10-19] MEDS: LISINOPRIL 10MG TABLET PO SCH ×2 (09:35→21:07)
[2019-10-19] MEDS: SEVELAMER CARBONATE 800 MG TABLET PO SCH ×3 (10:02→17:42)
[2019-10-19 12:00] VITALS: BP 149/76
[2019-10-19 16:00] VITALS: BP 140/80
[2019-10-19 20:00] VITALS: BP 141/75
[2019-10-19] MEDS ORDERED: EPOETIN ALFA 10000UNITS/ML VIAL SUBCUT NR (22:00)
[2019-10-19] MEDS ORDERED: LACTULOSE 20G/30ML UDC PO PRN (23:00)
[2019-10-20] VITALS: BP 101/41
[2019-10-20] MEDS: BISACODYL 5MG TABLET PO SCH ×2 (00:05→21:00)
[2019-10-20 04:00] VITALS: BP 141/73
[2019-10-20] MEDS: BLOOD SUGAR DIAGNOSTIC STRIP TEST SCH ×4 (06:29→20:26)
[2019-10-20 07:13] LABS: HEMATOCRIT 22.9 % (42.0-52.0); HEMOGLOBIN 7.8 g/dL (14.0-18.0); MEAN CORPUSCULAR VOLUME 93.8 fL (80.0-94.0); PLATELET 135 x1000/uL (130-400); RED BLOOD CELL COUNT 2.44 mill/uL (4.7-6.1); RED CELL DISTRIBUTION WIDTH 16.1 % (11.6-14.6)
[2019-10-20] MEDS: INSULIN LISPRO 100 UNITS/ML SUBCUT SCH ×4 (07:40→21:00)
[2019-10-20 08:00] VITALS: BP 146/80
[2019-10-20] MEDS: SEVELAMER CARBONATE 800 MG TABLET PO SCH ×3 (09:08→17:21)
[2019-10-20] MEDS: FUROSEMIDE 20MG TABLET PO SCH (09:08)
[2019-10-20] MEDS: AMLODIPINE 10MG TABLET PO SCH (09:08)
[2019-10-20] MEDS: LISINOPRIL 20MG TABLET PO SCH ×2 (09:08→21:49)
[2019-10-20] MEDS: CITRIC ACID/SODIUM CITRATE SOLN 30ML UDC PO SCH (09:08)
[2019-10-20] MEDS: IRON SUCROSE COMPLEX 100 MG/5 ML ML IV SCH (09:09)
[2019-10-20 12:00] VITALS: BP 126/61
[2019-10-20 16:00] VITALS: BP_SYST 113; BP_SYST 151; BP_DIAS 50; BP_DIAS 77
[2019-10-20 20:00] VITALS: BP 141/78
[2019-10-20] MEDS ORDERED: EPOETIN ALFA 4000UNITS/ML VIAL SUBCUT SCH (21:00)
[2019-10-21] VITALS (7 sets, daily range): BP systolic 130–146; BP diastolic 68–80
[2019-10-21] MEDS: BLOOD SUGAR DIAGNOSTIC STRIP TEST SCH ×4 (06:26→21:34)
[2019-10-21] MEDS: INSULIN LISPRO 100 UNITS/ML SUBCUT SCH ×4 (06:26→21:00)
[2019-10-21 06:53] LABS: HEMATOCRIT 23.4 % (42.0-52.0); MEAN CORPUSCULAR HEMOGLOBIN 32.1 pg (28.0-32.0); MEAN CORPUSCULAR VOLUME 93.8 fL (80.0-94.0); PLATELET 136 x1000/uL (130-400); RED CELL DISTRIBUTION WIDTH 15.9 % (11.6-14.6)
[2019-10-21] MEDS: SEVELAMER CARBONATE 800 MG TABLET PO SCH ×3 (08:58→17:08)
[2019-10-21] MEDS: FUROSEMIDE 20MG TABLET PO SCH (08:58)
[2019-10-21] MEDS: CITRIC ACID/SODIUM CITRATE SOLN 30ML UDC PO SCH (08:58)
[2019-10-21] MEDS: IRON SUCROSE COMPLEX 100 MG/5 ML ML IV SCH (08:58)
[2019-10-21] MEDS: AMLODIPINE 10MG TABLET PO SCH (08:58)
[2019-10-21] MEDS: LISINOPRIL 20MG TABLET PO SCH ×3 (08:58→21:42)
[2019-10-21] MEDS: BISACODYL 5MG TABLET PO SCH (21:00)
[2019-10-21] MEDS ORDERED: EPOETIN ALFA 4000UNITS/ML VIAL SUBCUT SCH ×2 (21:00)
[2019-10-22] VITALS (9 sets, daily range): BP systolic 118–150; BP diastolic 64–76
[2019-10-22 06:21] LABS: MEAN CORPUSCULAR HEMOGLOBIN 32.4 pg (28.0-32.0); MEAN CORPUSCULAR VOLUME 93.2 fL (80.0-94.0); PLATELET 125 x1000/uL (130-400); RED BLOOD CELL COUNT 2.17 mill/uL (4.7-6.1); RED CELL DISTRIBUTION WIDTH 16.1 % (11.6-14.6)
[2019-10-22] MEDS: INSULIN LISPRO 100 UNITS/ML SUBCUT SCH ×4 (06:42→20:44)
[2019-10-22] MEDS: BLOOD SUGAR DIAGNOSTIC STRIP TEST SCH ×4 (06:42→20:43)
[2019-10-22] MEDS ORDERED: LIDOCAINE HCL 1% 20ML VIAL (Pyxis) INJ ONE (06:53)
[2019-10-22] MEDS ORDERED: BACITRACIN 15GM TUBE TOP ONE (06:53)
[2019-10-22] MEDS ORDERED: BACITRACIN 50,000 UNITS/VIAL ONE (06:54)
[2019-10-22] MEDS ORDERED: THROMBIN (BOVINE) 5000 UNITS/VIAL TOP ONE (06:54)
[2019-10-22] MEDS ORDERED: HEPARIN SODIUM 1,000 UNIT/1ML VIAL IV ONE (06:54)
[2019-10-22] MEDS ORDERED: BUPIVACAINE HCL/PF 0.5% (5MG/ML) 10ML ONE (06:54)
[2019-10-22 07:10] LABS: HEMATOCRIT 20.2 % (42.0-52.0)
[2019-10-22] MEDS ORDERED: PROPOFOL 200MG/20ML VIAL IV ONE ×2 (07:21→07:51)
[2019-10-22] MEDS ORDERED: FENTANYL CITRATE/PF 50MCG/ML 2ML VIAL ONE (07:21)
[2019-10-22] MEDS ORDERED: MIDAZOLAM HCL 2 MG/2 ML VIAL ONE (07:21)
[2019-10-22] MEDS ORDERED: LIDOCAINE HCL/PF 1% 10 MG/ML 5ML VIAL ONE (07:22)
[2019-10-22] MEDS ORDERED: HYDROCODONE/APAP 7.5/325MG 1 TAB TABLET PO PRN (07:30)
[2019-10-22] MEDS ORDERED: ROPIVACAINE HCL 10MG/ML 20 ML VIAL EPI ONE (07:32)
[2019-10-22] MEDS: SEVELAMER CARBONATE 800 MG TABLET PO SCH ×3 (07:40→17:54)
[2019-10-22] MEDS: CITRIC ACID/SODIUM CITRATE SOLN 30ML UDC PO SCH (11:12)
[2019-10-22] MEDS: IRON SUCROSE COMPLEX 100 MG/5 ML ML IV SCH (11:12)
[2019-10-22] MEDS: FUROSEMIDE 20MG TABLET PO SCH (11:13)
[2019-10-22] MEDS: AMLODIPINE 10MG TABLET PO SCH (11:13)
[2019-10-22] MEDS: LISINOPRIL 20MG TABLET PO SCH ×2 (11:13→20:15)
[2019-10-22] MEDS ORDERED: DIPHENHYDRAMINE 25MG CAPSULE PO NR (12:15)
[2019-10-22] MEDS ORDERED: ACETAMINOPHEN 325MG TABLET PO NR (12:15)
[2019-10-22] MEDS ORDERED: EPOETIN ALFA 4000UNITS/ML VIAL SUBCUT NR (19:30)
[2019-10-22] MEDS: BISACODYL 5MG TABLET PO SCH (20:44)
[2019-10-23] VITALS: BP 97/50
[2019-10-23 04:00] VITALS: BP 132/68
[2019-10-23] MEDS: BLOOD SUGAR DIAGNOSTIC STRIP TEST SCH ×2 (06:21→12:10)
[2019-10-23 06:54] LABS: HEMATOCRIT 23.2 % (42.0-52.0); HEMOGLOBIN 7.9 g/dL (14.0-18.0); MEAN CORPUSCULAR HEMOGLOBIN 31.9 pg (28.0-32.0); PLATELET 134 x1000/uL (130-400); RED BLOOD CELL COUNT 2.49 mill/uL (4.7-6.1); RED CELL DISTRIBUTION WIDTH 15.6 % (11.6-14.6)
[2019-10-23] MEDS: INSULIN LISPRO 100 UNITS/ML SUBCUT SCH ×2 (07:40→12:40)
[2019-10-23 08:00] VITALS: BP_SYST 132; BP_SYST 144; BP_DIAS 62; BP_DIAS 70
[2019-10-23] MEDS: CITRIC ACID/SODIUM CITRATE SOLN 30ML UDC PO SCH (09:00)
[2019-10-23] MEDS: SEVELAMER CARBONATE 800 MG TABLET PO SCH ×2 (10:51→13:15)
[2019-10-23] MEDS: LISINOPRIL 20MG TABLET PO SCH (10:53)
[2019-10-23] MEDS: FUROSEMIDE 20MG TABLET PO SCH (10:53)
[2019-10-23] MEDS: AMLODIPINE 10MG TABLET PO SCH (10:53)
[2019-10-23 12:00] VITALS: BP 138/69
[2019-10-23] MEDS ORDERED: SODIUM POLYSTYRENE SULFONATE 15 G/60 ML BOT PO NR (16:30)
[2019-10-23 16:40] VITALS: BP 138/69
[2019-10-23 17:07] LABS: HEPATITIS B SURFACE ANTIGEN NEGATIVE
[2019-10-23 17:37] LABS: HEPATITIS A AB IGM NEGATIVE (NEGATIVE)
== END 2019-10-23 17:00 | disposition home health service (06) | DRG 673 ==
LOC: ER 06:32 → EDBEDREQ 08:59 → ENRESERV 11:16 → EDBEDREQ 11:44 → 8WST 11:45
PROVIDERS: ADMIT Internal Medicine; ATTEND Internal Medicine
PROC: 03180ZD Bypass Left Brachial Artery to Upper Arm Vein, Open Approach (ICD-10-PCS; principal; 2019-10-22)
PROC: 30233N1 Transfusion of Nonautologous Red Blood Cells into Peripheral Vein, Percutaneous Approach (ICD-10-PCS; 2019-10-22)
DX: I12.0 Hypertensive chronic kidney disease with stage 5 chronic kidney disease or end stage renal disease (principal); N18.6 End stage renal disease; N17.9 Acute kidney failure, unspecified; E46 Unspecified protein-calorie malnutrition; L97.329 Non-pressure chronic ulcer of left ankle with unspecified severity; E87.5 Hyperkalemia; D63.1 Anemia in chronic kidney disease; E11.22 Type 2 diabetes mellitus with diabetic chronic kidney disease; E11.319 Type 2 diabetes mellitus with unspecified diabetic retinopathy without macular edema; E11.51 Type 2 diabetes mellitus with diabetic peripheral angiopathy without gangrene; K57.30 Diverticulosis of large intestine without perforation or abscess without bleeding; E11.610 Type 2 diabetes mellitus with diabetic neuropathic arthropathy; L85.3 Xerosis cutis; T24.001A Burn of unspecified degree of unspecified site of right lower limb, except ankle and foot, initial encounter; X08.8XXA Exposure to other specified smoke, fire and flames, initial encounter; Y93.89 Activity, other specified; Y92.89 Other specified places as the place of occurrence of the external cause; Y99.8 Other external cause status; Z82.49 Family history of ischemic heart disease and other diseases of the circulatory system; Z83.3 Family history of diabetes mellitus; Z68.20 Body mass index [BMI] 20.0-20.9, adult; Z79.82 Long term (current) use of aspirin; Z79.4 Long term (current) use of insulin; Z79.899 Other long term (current) drug therapy; Z03.818 Encounter for observation for suspected exposure to other biological agents ruled out
CPT/HCPCS: 36415; 36600; 71045; 80048; 80053; 80305; 80320; 82375; 82550; 82553; 82805; 82962; 83036; 83735; 84100; 84484; 85025; 85027; 86705; 86709; 86803; 86850; 86900; 86920; 87340; 87635; 93005; 93970; 99291; J0885; J1644; J1940; J2250; J2704; J2795; J3010; J3490; J7030; P9016; Q0163; G0480

== ENCOUNTER → 2021-08-06 | Day surgery (SDC) | payer MEDICARE, MEDICAID ==
[~2021-08-06] VITALS: Ht 177.8 cm; Wt 91.0 kg
[~2021-08-06] MED LIST changes: -ASPI-1158 MT; +BACITRACIN 15GM TUBE TOP ONE; +BUPIVACAINE HCL/PF 0.5% (5MG/ML) 10ML ONE; +CEFAZOLIN SODIUM 1000MG/VIAL ONE; -CHOL100046 MT; +EPHEDRINE SULFATE 50MG/ML VIAL ONE; +FENTANYL CITRATE/PF 50MCG/ML 5ML VIAL ONE; +HEPARIN SODIUM 1,000 UNIT/1ML VIAL IV NR; +HEPARIN SODIUM 1,000 UNIT/1ML VIAL IV ONE; -IBUP-2030 MT; -INSULIN; +LIDOCAINE HCL 1% 20ML VIAL (Pyxis) INJ ONE; +LIDOCAINE HCL/PF 2% 20MG/ML 5 ML/VIAL ONE; +LISI20TA31 PO; +LISI40TA13 PO; -LISI40TA4 PO; +METOCLOPRAMIDE HCL 10MG/2ML VIAL ONE; +MIDAZOLAM HCL 2 MG/2 ML VIAL ONE; +ONDANSETRON HCL 4MG/2ML INJ ONE; +POLYMYXIN B SULFATE 500000 UNITS/VIAL ONE; +PROPOFOL 200MG/20ML VIAL IV ONE; +SODIUM CHLORIDE 0.9% 500 ML IV ONE; +THROMBIN (BOVINE) 5000 UNITS/VIAL TOP ONE
[2021-08-06 06:14] LABS: BASOPHILS % 0.8 % (0.0-2.0); EOSINOPHILS % 2.3 % (0.0-5.0); HEMATOCRIT. 34.3 % (42.0-52.0); HEMOGLOBIN. 11.2 g/dL (14.0-18.0); LYMPHOCYTES % 22.9 % (20.0-50.0); MEAN CORPUSCULAR HEMOGLOBIN 33.3 pg (28.0-32.0); MEAN PLATELET VOLUME 6.8 fl (7.4-10.4); MONOCYTES % 7.6 % (2.0-8.0); NEUTROPHILS % 66.4 % (40.0-76.0); PLATELET 177 x1000/uL (130-400); RED BLOOD CELL COUNT 3.36 mill/uL (4.7-6.1); RED CELL DISTRIBUTION WIDTH 16.9 % (11.6-14.6)
[2021-08-06 06:22] LABS: PARTIAL THROMBOPLASTIN TIME 29.5 sec (23.4-31.0); PROTHROMBIN TIME 10.6 sec (9.6-11.0)
== END | disposition home or self-care (01) ==
LOC: OR 05:18
PROVIDERS: ATTEND Surgery Vascular Surgery
DX: I12.0 Hypertensive chronic kidney disease with stage 5 chronic kidney disease or end stage renal disease (principal); N18.6 End stage renal disease; E11.22 Type 2 diabetes mellitus with diabetic chronic kidney disease; Z99.2 Dependence on renal dialysis; Z79.899 Other long term (current) drug therapy; Z98.890 Other specified postprocedural states; Z20.822 Contact with and (suspected) exposure to COVID-19
CPT/HCPCS: 36415; 36830; 80048; 85025; 85610; 85730; 87426; 93005; C1768; C1884; C9803; J0690; J1644; J2250; J2405; J2704; J2765; J3010; J3490; J7030

== ENCOUNTER → 2022-12-21 | Outpatient (CLI) | payer MEDICARE, MEDICAID ==
[~2022-12-21] MED LIST changes: +APIX2.5T MT; +ASPI-1497 MT; -BACITRACIN 15GM TUBE TOP ONE; -BUPIVACAINE HCL/PF 0.5% (5MG/ML) 10ML ONE; -CEFAZOLIN SODIUM 1000MG/VIAL ONE; -EPHEDRINE SULFATE 50MG/ML VIAL ONE; +FAMO-135 MT; -FENTANYL CITRATE/PF 50MCG/ML 5ML VIAL ONE; -FURO20TA4 MT; -HEPARIN SODIUM 1,000 UNIT/1ML VIAL IV NR; -HEPARIN SODIUM 1,000 UNIT/1ML VIAL IV ONE; -LIDOCAINE HCL 1% 20ML VIAL (Pyxis) INJ ONE; -LIDOCAINE HCL/PF 2% 20MG/ML 5 ML/VIAL ONE; -LISI40TA13 PO; -METOCLOPRAMIDE HCL 10MG/2ML VIAL ONE; -MIDAZOLAM HCL 2 MG/2 ML VIAL ONE; -ONDANSETRON HCL 4MG/2ML INJ ONE; -PANT40SU MT; -POLYMYXIN B SULFATE 500000 UNITS/VIAL ONE; -PROPOFOL 200MG/20ML VIAL IV ONE; -SEVE800T8 PO; -SODIUM CHLORIDE 0.9% 500 ML IV ONE; -THROMBIN (BOVINE) 5000 UNITS/VIAL TOP ONE
== END | disposition home or self-care (01) ==
LOC: US 09:46
PROVIDERS: ATTEND Internal Medicine Nephrology
DX: I82.B12 Acute embolism and thrombosis of left subclavian vein (principal); M79.89 Other specified soft tissue disorders
CPT/HCPCS: 93971

== ENCOUNTER 2022-12-30 10:20 | Emergency (ER) | payer MEDICARE, MEDICAID ==
[~2022-12-30] VITALS: Ht 177.8 cm; Wt 100.0 kg
[2022-12-30 10:35] VITALS: O2SAT 100
[2022-12-30] MEDS ORDERED: CEPHALEXIN 250MG CAPSULE PO ONE (10:45)
[2022-12-30] MEDS ORDERED: BACITRACIN ZINC OINT UDPKT TOP ONE (10:45)
[2022-12-30] MEDS ORDERED: TETANUS, DIPHTHERIA, PERTUSSIS VAC/PF 0.5ML (>10YR OLD) IM ONE (10:45)
[2022-12-30] MEDS ORDERED: T3 PO (11:17)
[2022-12-30] MEDS ORDERED: BO1 TP (11:17)
[2022-12-30] MEDS ORDERED: CEPH500T MT ×2 (11:17)
[2022-12-30 12:00] VITALS: BP 141/74; PULSE 71; RESP 16; TEMP 98
== END 2022-12-30 12:47 | disposition home or self-care (01) ==
LOC: ER 10:20
DX: T24.102A Burn of first degree of unspecified site of left lower limb, except ankle and foot, initial encounter (principal); T31.0 Burns involving less than 10% of body surface; T79.9XXA Unspecified early complication of trauma, initial encounter; X08.8XXA Exposure to other specified smoke, fire and flames, initial encounter; Y93.89 Activity, other specified; Y92.89 Other specified places as the place of occurrence of the external cause; Y99.8 Other external cause status
CPT/HCPCS: 16000; 82962; 90715; 99283

== ENCOUNTER → 2023-04-14 | Day surgery (SDC) | payer MEDICARE, MEDICAID ==
[~2023-04-14] VITALS: Ht 177.8 cm; Wt 99.8 kg
[~2023-04-14] MED LIST changes: -APIX2.5T MT; +BACITRACIN 14GM TUBE TOP ONE; +BUPIVACAINE HCL/PF 0.5% (5MG/ML) 10ML ONE; +CEFAZOLIN SODIUM 1000MG/VIAL ONE; +DEXAMETHASONE 4MG/ML 1ML VIAL ONE; -FAMO-135 MT; +FENTANYL CITRATE/PF 50MCG/ML 2ML VIAL ONE; +HEPARIN SODIUM 1,000 UNIT/1ML VIAL IV NR; +HEPARIN SODIUM 1,000 UNIT/1ML VIAL IV ONE; +HYDROMORPHONE HCL/PF 2MG/ML CPJ IV PRN; +LABETALOL 5MG/ML SYR 20 MG/4 ML SYRINGE IV PRN; +LIDOCAINE HCL 1% 10 MG/ML 10ML VIAL ONE; +MEPERIDINE HCL/PF 25MG/ML CPJ IV PRN; +MIDAZOLAM HCL 2 MG/2 ML VIAL ONE; +ONDANSETRON HCL 4MG/2ML INJ IV PRN; +POLYMYXIN B SULFATE 500000 UNITS/VIAL ONE; +PROPOFOL 200MG/20ML VIAL IV ONE; +SKIN ADHESIVE 0.7 GM EA TOP ONE; +SODIUM CHLORIDE 0.9% 500 ML IV ONE; +THROMBIN (BOVINE) 5000 UNITS/VIAL TOP ONE
[2023-04-14 08:50] LABS: BASOPHILS % 0.9 % (0.0-2.0); DIFFERENTIAL COMMENT 0; HEMATOCRIT. 32.1 % (42.0-52.0); LYMPHOCYTES % 25.2 % (20.0-50.0); MEAN CORPUSCULAR HEMOGLOBIN 35.8 pg (28.0-32.0); MEAN CORPUSCULAR HGB CONC 34.4 g/dL (31.0-37.0); MEAN CORPUSCULAR VOLUME 104.2 fL (80.0-94.0); MONOCYTES % 10.4 % (2.0-8.0); NEUTROPHILS % 61.5 % (40.0-76.0); PLATELET 126 x1000/uL (130-400); RED BLOOD CELL COUNT 3.07 mill/uL (4.7-6.1); RED CELL DISTRIBUTION WIDTH 16.4 % (11.6-14.6); WHITE BLOOD COUNT 3.6 x1000/uL (4.5-11.0)
[2023-04-14 08:57] LABS: CALCIUM 9.3 mg/dL (8.7-10.4); POTASSIUM 4.6 mEq/L (3.5-5.1)
[2023-04-14 09:01] LABS: INR 0.9; PARTIAL THROMBOPLASTIN TIME 29.1 sec (23.4-31.0); PROTHROMBIN TIME 10.1 sec (9.6-11.0)
[2023-04-14 09:04] LABS: CREATININE 5.8 mg/dL (0.6-1.3)
== END | disposition home or self-care (01) ==
LOC: OR 07:59
PROVIDERS: ATTEND Surgery Vascular Surgery
DX: I77.0 Arteriovenous fistula, acquired (principal); I12.0 Hypertensive chronic kidney disease with stage 5 chronic kidney disease or end stage renal disease; N18.6 End stage renal disease; E11.22 Type 2 diabetes mellitus with diabetic chronic kidney disease; Z99.2 Dependence on renal dialysis; Z79.82 Long term (current) use of aspirin; Z79.899 Other long term (current) drug therapy; Z98.890 Other specified postprocedural states
CPT/HCPCS: 36830; 37607; 80048; 85025; 85610; 85730; 36415; 93005; C1768; J3010; J3490 ×4; J0690; J1100; J1644; J2250; J2704; Z7610 ×22; J7040

== ENCOUNTER 2023-10-14 07:56 | Emergency (ER) | payer MEDICARE, MEDICAID ==
[~2023-10-14] VITALS: Ht 177.8 cm; Wt 96.0 kg
[~2023-10-14 07:56] MED LIST changes: -BACITRACIN 14GM TUBE TOP ONE; -BUPIVACAINE HCL/PF 0.5% (5MG/ML) 10ML ONE; -CEFAZOLIN SODIUM 1000MG/VIAL ONE; -DEXAMETHASONE 4MG/ML 1ML VIAL ONE; -FENTANYL CITRATE/PF 50MCG/ML 2ML VIAL ONE; -HEPARIN SODIUM 1,000 UNIT/1ML VIAL IV NR; -HEPARIN SODIUM 1,000 UNIT/1ML VIAL IV ONE; -HYDROMORPHONE HCL/PF 2MG/ML CPJ IV PRN; -LABETALOL 5MG/ML SYR 20 MG/4 ML SYRINGE IV PRN; -LIDOCAINE HCL 1% 10 MG/ML 10ML VIAL ONE; -MEPERIDINE HCL/PF 25MG/ML CPJ IV PRN; -MIDAZOLAM HCL 2 MG/2 ML VIAL ONE; -ONDANSETRON HCL 4MG/2ML INJ IV PRN; -POLYMYXIN B SULFATE 500000 UNITS/VIAL ONE; -PROPOFOL 200MG/20ML VIAL IV ONE; -SKIN ADHESIVE 0.7 GM EA TOP ONE; -SODIUM CHLORIDE 0.9% 500 ML IV ONE; -THROMBIN (BOVINE) 5000 UNITS/VIAL TOP ONE
[2023-10-14 08:05] VITALS: PULSE 74
[2023-10-14 08:08] VITALS: BP 156/76; RESP 18; O2SAT 99
[2023-10-14 09:06] VITALS: TEMP 98.8
[2023-10-14] MEDS: ACETAMINOPHEN 325MG TABLET PO STA (09:06)
[2023-10-14] MEDS ORDERED: ACET-2708 PO (09:35)
== END 2023-10-14 10:17 | disposition home or self-care (01) ==
LOC: ER 07:56
DX: S50.11XA Contusion of right forearm, initial encounter (principal); S50.01XA Contusion of right elbow, initial encounter; E11.9 Type 2 diabetes mellitus without complications; I10 Essential (primary) hypertension; J06.9 Acute upper respiratory infection, unspecified; Z20.822 Contact with and (suspected) exposure to COVID-19; W18.39XA Other fall on same level, initial encounter; Y93.89 Activity, other specified; Y92.89 Other specified places as the place of occurrence of the external cause; Y99.8 Other external cause status
CPT/HCPCS: 73080; 73090; 87426; 99284

== ENCOUNTER 2024-04-05 20:38 | Inpatient (IN) | payer MEDICARE, MEDICAID ==
[~2024-04-05] VITALS: Ht 177.8 cm; Wt 88.7 kg
[~2024-04-05 20:38] MED LIST changes: +ACET-2708 PO; +FOLI0.8T53 MT
[2024-04-05 23:05] LABS: BASOPHILS % 1.1 % (0.0-2.0); EOSINOPHILS % 2.8 % (0.0-5.0); HEMATOCRIT. 22.9 % (42.0-52.0); LYMPHOCYTES % 17.5 % (20.0-50.0); MEAN CORPUSCULAR HEMOGLOBIN 31.9 pg (28.0-32.0); MEAN CORPUSCULAR HGB CONC 34.7 g/dL (31.0-37.0); MEAN PLATELET VOLUME 7.1 fl (7.4-10.4); MONOCYTES % 7.1 % (2.0-8.0); NEUTROPHILS % 71.5 % (40.0-76.0); PLATELET 82 x1000/uL (130-400); RED CELL DISTRIBUTION WIDTH 17.7 % (11.6-14.6); WHITE BLOOD COUNT 2.8 x1000/uL (4.5-11.0)
[2024-04-05 23:09] LABS: CHLORIDE 100 mEq/L (98-107); POTASSIUM 4.6 mEq/L (3.5-5.1); SODIUM 137 mEq/L (136-145)
[2024-04-05 23:10] LABS: CALCIUM 9.8 mg/dL (8.7-10.4); CARBON DIOXIDE 28 mEq/L (21-32)
[2024-04-05 23:15] LABS: GLUCOSE 100 mg/dL (70-105); PARTIAL THROMBOPLASTIN TIME 29.7 sec (23.4-31.0); UREA NITROGEN BLOOD 38 mg/dL (9-23)
[2024-04-05 23:16] LABS: TROPONIN I HIGH SENSITIVITY 15 ng/L (3.0-53)
[2024-04-05 23:25] LABS: CREATININE 10.3 mg/dL (0.6-1.3)
[2024-04-06] VITALS (13 sets, daily range): BP systolic 121–175; BP diastolic 70–87; PULSE 56–80; RESP 13–22; TEMP 36.3918–36.78072; O2SAT 95–98
[2024-04-06] MEDS: FUROSEMIDE 40MG/4ML VIAL IVP SCH (08:35)
[2024-04-06] MEDS: ASPIRIN 81MG TABLET PO SCH (08:35)
[2024-04-06] MEDS: FOLIC ACID/VITAMIN B COMP W-C TABLET PO SCH (08:35)
[2024-04-06] MEDS: AMLODIPINE 10MG TABLET PO SCH (08:36)
[2024-04-06] MEDS: CARVEDILOL 12.5MG TABLET PO SCH (08:36)
[2024-04-06 10:03] LABS: BASOPHILS % 1.3 % (0.0-2.0); EOSINOPHILS % 2.5 % (0.0-5.0); HEMOGLOBIN. 7.8 g/dL (14.0-18.0); LYMPHOCYTES % 18.5 % (20.0-50.0); MEAN CORPUSCULAR HEMOGLOBIN 31.4 pg (28.0-32.0); MEAN CORPUSCULAR HGB CONC 33.9 g/dL (31.0-37.0); MEAN CORPUSCULAR VOLUME 92.5 fL (80.0-94.0); MEAN PLATELET VOLUME 7.1 fl (7.4-10.4); MONOCYTES % 7.8 % (2.0-8.0); NEUTROPHILS % 69.9 % (40.0-76.0); PLATELET 77 x1000/uL (130-400); RED BLOOD CELL COUNT 2.49 mill/uL (4.7-6.1); RED CELL DISTRIBUTION WIDTH 17.6 % (11.6-14.6); WHITE BLOOD COUNT 2.9 x1000/uL (4.5-11.0)
[2024-04-06] MEDS ORDERED: DEXTROSE 50% WATER 50ML SYRINGE IV PRN (10:15)
[2024-04-06] MEDS ORDERED: LOSARTAN 50 MG TABLET PO SCH (10:40)
[2024-04-06 10:56] LABS: CHLORIDE 100 mEq/L (98-107); POTASSIUM 4.4 mEq/L (3.5-5.1); SODIUM 137 mEq/L (136-145)
[2024-04-06 10:57] LABS: CALCIUM 9.3 mg/dL (8.7-10.4); CARBON DIOXIDE 27 mEq/L (21-32)
[2024-04-06 11:02] LABS: GLUCOSE 75 mg/dL (70-105); UREA NITROGEN BLOOD 41 mg/dL (9-23)
[2024-04-06 11:04] LABS: ALANINE AMINOTRANSFERASE < 7 IU/L (10-49); ALBUMIN 3.7 g/dL (3.2-4.8); ASPARTATE AMINOTRANSFERASE 14 IU/L (<34); BILIRUBIN TOTAL 0.7 mg/dL (0.1-1.0); PROTEIN TOTAL 6.2 g/dL (6.0-8.3)
[2024-04-06 11:11] LABS: CREATININE 10.4 mg/dL (0.6-1.3)
[2024-04-06] MEDS ORDERED: BLOOD SUGAR DIAGNOSTIC STRIP TEST SCH (11:50)
[2024-04-06] MEDS ORDERED: INSULIN LISPRO 100 UNITS/ML SUBCUT SCH (12:20)
[2024-04-06] MEDS: SEVELAMER CARBONATE 800 MG TABLET PO SCH (12:31)
[2024-04-06] MEDS: FERROUS SULFATE 325MG TABLET PO SCH (12:31)
[2024-04-06] MEDS: LOSARTAN 50 MG TABLET PO SCH (12:31)
[2024-04-06] MEDS ORDERED: ACETAMINOPHEN 325MG TABLET PO PRN (18:45)
[2024-04-06] MEDS: ONDANSETRON HCL 4MG/2ML INJ IV PRN (20:00)
[2024-04-06] MEDS ORDERED: EPOETIN ALFA-EPBX 4,000 UNIT/ML VIAL SUBCUT SCH (21:00)
[2024-04-06] MEDS: EPOETIN ALFA-EPBX 4,000 UNIT/ML VIAL SUBCUT SCH (23:21)
[2024-04-07 04:00] VITALS: BP 156/65; PULSE 67; RESP 12; TEMP 36.50292; O2SAT 96
[2024-04-07 08:00] VITALS: BP 159/75; PULSE 64; RESP 19; TEMP 36.6696; TEMP 36.66960; O2SAT 96
[2024-04-07 10:21] VITALS: BP 159/75; PULSE 64; TEMP 98; O2SAT 96
== END 2024-04-07 12:36 | disposition home or self-care (01) | DRG 640 ==
LOC: ER 20:38 → EDBEDREQ 21:32 → 5WST 04-06 00:16 → EDBEDREQ 04-06 00:37 → EDBEDREQTM 04-06 00:37 → EDBEDREQDT 04-06 00:37 → 3WST 04-06 05:59
PROVIDERS: ADMIT Internal Medicine; ATTEND Internal Medicine
PROC: 5A1D70Z Performance of Urinary Filtration, Intermittent, Less than 6 Hours Per Day (ICD-10-PCS; principal; 2024-04-06)
DX: E87.70 Fluid overload, unspecified (principal); N18.6 End stage renal disease; I12.0 Hypertensive chronic kidney disease with stage 5 chronic kidney disease or end stage renal disease; D61.818 Other pancytopenia; Z91.158 Patient's noncompliance with renal dialysis for other reason; E11.22 Type 2 diabetes mellitus with diabetic chronic kidney disease; D63.1 Anemia in chronic kidney disease; E11.319 Type 2 diabetes mellitus with unspecified diabetic retinopathy without macular edema; Z99.2 Dependence on renal dialysis; Z86.73 Personal history of transient ischemic attack (TIA), and cerebral infarction without residual deficits; Z86.718 Personal history of other venous thrombosis and embolism; Z79.899 Other long term (current) drug therapy
CPT/HCPCS: 36415; 71045; 80048; 80053; 83880; 84484; 85025; 90935; 93005; 93306; 93970; 99285; J0885; J1940; J2405

== ENCOUNTER 2024-07-09 21:47 | Emergency (ER) | payer MEDICARE, MEDICAID ==
[~2024-07-09] VITALS: Ht 177.8 cm; Wt 100.0 kg
[~2024-07-09 21:47] MED LIST changes: +AMLO-905 PO; -AMLO10TA4 PO; +FURO40TA5 PO
[2024-07-09 22:18] VITALS: TEMP 36.9; O2SAT 100
[2024-07-09] MEDS: ACETAMINOPHEN 325MG TABLET PO ONE (23:15)
[2024-07-10] MEDS ORDERED: BO1 TP (00:17)
[2024-07-10 04:04] VITALS: BP 137/90; PULSE 74; RESP 17; O2SAT 100
== END 2024-07-10 04:30 | disposition home or self-care (01) ==
LOC: ER 21:47
DX: T30.0 Burn of unspecified body region, unspecified degree (principal); E11.40 Type 2 diabetes mellitus with diabetic neuropathy, unspecified; I10 Essential (primary) hypertension; Z79.82 Long term (current) use of aspirin; Z79.899 Other long term (current) drug therapy; Z99.2 Dependence on renal dialysis
CPT/HCPCS: 99282

== ENCOUNTER 2024-07-21 18:11 | Emergency (ER) | payer MEDICARE, MEDICAID ==
[~2024-07-21] VITALS: Ht 177.8 cm; Wt 102.0 kg
[~2024-07-21 18:11] MED LIST changes: -ACET-2708 PO; -AMLO-905 PO; +AMLO5TAB88 PO; +BO1 TP; -FOLI0.8T53 MT
[2024-07-21 18:21] VITALS: O2SAT 99
[2024-07-21 20:10] LABS: BASOPHILS % 1.1 % (0.0-2.0); EOSINOPHILS % 2.3 % (0.0-5.0); HEMATOCRIT. 23.2 % (42.0-52.0); HEMOGLOBIN. 8.1 g/dL (14.0-18.0); LYMPHOCYTES % 10.1 % (20.0-50.0); MEAN CORPUSCULAR HEMOGLOBIN 32.2 pg (28.0-32.0); MEAN CORPUSCULAR HGB CONC 35.1 g/dL (31.0-37.0); MEAN PLATELET VOLUME 7.6 fl (7.4-10.4); MONOCYTES % 6.9 % (2.0-8.0); NEUTROPHILS % 79.6 % (40.0-76.0); PLATELET 79 x1000/uL (130-400); RED BLOOD CELL COUNT 2.52 mill/uL (4.7-6.1); RED CELL DISTRIBUTION WIDTH 17.9 % (11.6-14.6); WHITE BLOOD COUNT 2.8 x1000/uL (4.5-11.0)
[2024-07-21 20:17] LABS: CHLORIDE 99 mEq/L (98-107); POTASSIUM 4.9 mEq/L (3.5-5.1); SODIUM 134 mEq/L (136-145)
[2024-07-21 20:18] LABS: CARBON DIOXIDE 25 mEq/L (21-32)
[2024-07-21 20:19] LABS: CALCIUM 9.8 mg/dL (8.7-10.4)
[2024-07-21 20:23] LABS: GLUCOSE 95 mg/dL (70-105); UREA NITROGEN BLOOD 37 mg/dL (9-23)
[2024-07-21 20:24] LABS: INR 1.1; PROTHROMBIN TIME 11.5 sec (9.6-11.0); TROPONIN I HIGH SENSITIVITY 50 ng/L (3.0-53)
[2024-07-21 20:32] LABS: CREATININE 8.2 mg/dL (0.6-1.3)
[2024-07-21 21:39] VITALS: BP 142/75; PULSE 54; RESP 15; TEMP 36.5; O2SAT 99
[2024-07-22] MEDS ORDERED: CEPH500C2 MT (15:22)
[2024-07-22] MEDS ORDERED: BO1 TP (15:22)
== END 2024-07-21 22:07 | disposition home or self-care (01) ==
LOC: ER 18:11
DX: R53.1 Weakness (principal); I12.0 Hypertensive chronic kidney disease with stage 5 chronic kidney disease or end stage renal disease; E11.22 Type 2 diabetes mellitus with diabetic chronic kidney disease; N18.6 End stage renal disease; Z79.82 Long term (current) use of aspirin; Z79.899 Other long term (current) drug therapy; Z86.73 Personal history of transient ischemic attack (TIA), and cerebral infarction without residual deficits; Z99.2 Dependence on renal dialysis
CPT/HCPCS: 36415; 71045; 80048; 84484; 85025; 93005; 99285; A4606

== ENCOUNTER 2024-07-22 14:32 | Emergency (ER) | payer MEDICARE, MEDICAID ==
[~2024-07-22] VITALS: Ht 175.3 cm; Wt 85.0 kg
[2024-07-22 14:39] VITALS: O2SAT 99
[2024-07-22 14:47] VITALS: BP 164/74; PULSE 65; RESP 18; TEMP 36.9; O2SAT 98
[2024-07-22] MEDS ORDERED: BO1 TP (15:22)
[2024-07-22] MEDS ORDERED: CEPH500C2 MT (15:22)
== END 2024-07-22 15:39 | disposition home or self-care (01) ==
LOC: ER 14:32
DX: T24.002A Burn of unspecified degree of unspecified site of left lower limb, except ankle and foot, initial encounter (principal); E11.40 Type 2 diabetes mellitus with diabetic neuropathy, unspecified; N18.6 End stage renal disease; I12.0 Hypertensive chronic kidney disease with stage 5 chronic kidney disease or end stage renal disease; Z79.899 Other long term (current) drug therapy; Z86.73 Personal history of transient ischemic attack (TIA), and cerebral infarction without residual deficits; Z99.2 Dependence on renal dialysis; X58.XXXA Exposure to other specified factors, initial encounter; Y93.89 Activity, other specified; Y92.89 Other specified places as the place of occurrence of the external cause; Y99.8 Other external cause status
CPT/HCPCS: 99283

== ENCOUNTER 2024-08-07 11:28 | Inpatient (IN) | payer MEDICARE, MEDICAID ==
[~2024-08-07] VITALS: Ht 177.8 cm; Wt 99.8 kg
[~2024-08-07 11:28] MED LIST changes: +CEPH500C2 MT
[2024-08-07 12:24] LABS: BASOPHILS % 0.9 % (0.0-2.0); DIFFERENTIAL COMMENT 0; LYMPHOCYTES % 7.5 % (20.0-50.0); MEAN CORPUSCULAR HEMOGLOBIN 31.1 pg (28.0-32.0); MEAN CORPUSCULAR HGB CONC 33.7 g/dL (31.0-37.0); MEAN CORPUSCULAR VOLUME 92.4 fL (80.0-94.0); MEAN PLATELET VOLUME 7.5 fl (7.4-10.4); MONOCYTES % 6.9 % (2.0-8.0); NEUTROPHILS % 83.7 % (40.0-76.0); PLATELET 163 x1000/uL (130-400); RED BLOOD CELL COUNT 2.12 mill/uL (4.7-6.1); RED CELL DISTRIBUTION WIDTH 17.9 % (11.6-14.6); WHITE BLOOD COUNT 5.9 x1000/uL (4.5-11.0)
[2024-08-07 12:30] LABS: POTASSIUM 4.1 mEq/L (3.5-5.1)
[2024-08-07 12:31] LABS: CALCIUM 9.4 mg/dL (8.7-10.4)
[2024-08-07 12:32] LABS: HEMATOCRIT. 19.6 % (42.0-52.0); HEMOGLOBIN. 6.6 g/dL (14.0-18.0)
[2024-08-07 12:58] LABS: CREATININE 8.1 mg/dL (0.6-1.3)
[2024-08-07 12:59] LABS: INR 1.1; PROTHROMBIN TIME 11.7 sec (9.6-11.0)
[2024-08-07] MEDS ORDERED: MAGNESIUM/ALUMINUM HYDROXIDE/SIMETHICONE 30ML UDC PO PRN (14:00)
[2024-08-07] MEDS ORDERED: DIPHENHYDRAMINE 50MG/ML VIAL IV PRN (14:00)
[2024-08-07] MEDS ORDERED: GUAIFENESIN 200MG/10ML SUGAR FREE UDC PO PRN (14:00)
[2024-08-07] MEDS ORDERED: ONDANSETRON HCL 4MG/2ML INJ IV PRN (14:00)
[2024-08-07] MEDS ORDERED: DOCUSATE SODIUM 100MG CAPSULE PO PRN (14:00)
[2024-08-07] MEDS ORDERED: IPRATROPIUM/ALBUTEROL 0.5-3(2.5)MG/3ML NEB HHN PRN (14:00)
[2024-08-07] MEDS ORDERED: ACETAMINOPHEN 325MG TABLET PO PRN (14:00)
[2024-08-07] MEDS ORDERED: CLONIDINE 0.1MG TABLET PO PRN (14:00)
[2024-08-07] MEDS: AMLODIPINE 5MG TABLET PO SCH (14:30)
[2024-08-07] MEDS: LISINOPRIL 10MG TABLET PO SCH (14:30)
[2024-08-07 15:00] VITALS: BP 151/72; PULSE 81; RESP 17; TEMP 36.8; O2SAT 96
[2024-08-07 16:02] VITALS: BP 151/72; PULSE 82; RESP 17; TEMP 36.8
[2024-08-07 17:10] LABS: CREATINE KINASE MB FRACTION < 0.5 ng/mL (0.5-3.6); TROPONIN I HIGH SENSITIVITY 31 ng/L (3.0-53)
[2024-08-07 17:11] LABS: CREATINE KINASE 29 IU/L (46-171)
[2024-08-07 17:12] LABS: PHOSPHORUS 4.2 mg/dL (2.5-4.9)
[2024-08-07 20:00] VITALS: BP 126/75; PULSE 85; RESP 18; TEMP 37.9; O2SAT 96
[2024-08-07 21:01] LABS: HEMATOCRIT 22.5 % (42.0-52.0); HEMOGLOBIN 7.7 g/dL (14.0-18.0)
[2024-08-07] MEDS: CARVEDILOL 12.5MG TABLET PO SCH (21:10)
[2024-08-07] MEDS: FUROSEMIDE 40MG TABLET PO SCH (21:11)
[2024-08-07] MEDS: EPOETIN ALFA-EPBX 4,000 UNIT/ML VIAL SUBCUT SCH (21:13)
[2024-08-08] VITALS (10 sets, daily range): BP systolic 121–154; BP diastolic 63–80; PULSE 61–84; RESP 16–19; TEMP 36.4–38.2; O2SAT 96–100
[2024-08-08 00:23] LABS: CREATINE KINASE 26 IU/L (46-171); CREATINE KINASE MB FRACTION < 0.5 ng/mL (0.5-3.6)
[2024-08-08 00:24] LABS: TROPONIN I HIGH SENSITIVITY 32 ng/L (3.0-53)
[2024-08-08 06:06] LABS: POTASSIUM 4.2 mEq/L (3.5-5.1)
[2024-08-08 06:07] LABS: CALCIUM 8.9 mg/dL (8.7-10.4)
[2024-08-08 06:15] LABS: T4 FREE 1.11 ng/dL (0.89-1.76); THYROID STIMULATING HORMONE 1.12 uIU/mL (0.55-4.78)
[2024-08-08 06:33] LABS: CREATININE 8.9 mg/dL (0.6-1.3)
[2024-08-08 06:50] LABS: MEAN CORPUSCULAR HEMOGLOBIN 31.1 pg (28.0-32.0); MEAN CORPUSCULAR HGB CONC 33.8 g/dL (31.0-37.0); MEAN CORPUSCULAR VOLUME 92.2 fL (80.0-94.0); MEAN PLATELET VOLUME 7.5 fl (7.4-10.4); PLATELET 152 x1000/uL (130-400); RED BLOOD CELL COUNT 2.23 mill/uL (4.7-6.1); WHITE BLOOD COUNT 6.6 x1000/uL (4.5-11.0)
[2024-08-08 07:02] LABS: DIFFERENTIAL COMMENT 1
[2024-08-08 07:07] LABS: HEMATOCRIT. 20.6 % (42.0-52.0); HEMOGLOBIN. 6.9 g/dL (14.0-18.0)
[2024-08-08] MEDS: AMLODIPINE 10MG TABLET PO SCH (08:42)
[2024-08-08] MEDS: LISINOPRIL 20MG TABLET PO SCH (08:43)
[2024-08-08 13:51] LABS: PLATELET ESTIMATE NORMAL
[2024-08-08 13:52] LABS: ANISOCYTOSIS 2+; HYPOCHROMASIA 1+
[2024-08-08] MEDS ORDERED: AMLO10TA80 PO (16:15)
[2024-08-08] MEDS: SILVER SULFADIAZINE 1% CREAM 50GM TOP SCH (21:00)
[2024-08-09 06:55] LABS: HEMATOCRIT. 23.2 % (42.0-52.0); HEMOGLOBIN. 7.8 g/dL (14.0-18.0); MEAN CORPUSCULAR HEMOGLOBIN 30.1 pg (28.0-32.0); MEAN CORPUSCULAR HGB CONC 33.4 g/dL (31.0-37.0); MEAN CORPUSCULAR VOLUME 90.2 fL (80.0-94.0); MEAN PLATELET VOLUME 7.5 fl (7.4-10.4); PLATELET 158 x1000/uL (130-400); RED BLOOD CELL COUNT 2.57 mill/uL (4.7-6.1); RED CELL DISTRIBUTION WIDTH 17.6 % (11.6-14.6); WHITE BLOOD COUNT 4.9 x1000/uL (4.5-11.0)
[2024-08-09 07:03] LABS: DIFFERENTIAL COMMENT 1
[2024-08-09 08:00] VITALS: BP 143/57; PULSE 76; RESP 19; TEMP 37.4; O2SAT 100
[2024-08-09 12:00] VITALS: BP 141/60; PULSE 72; RESP 19; TEMP 37.1; O2SAT 98
[2024-08-09] MEDS: ACETAMINOPHEN 325MG TABLET PO PRN (12:24)
[2024-08-09] MEDS: PNEUMOCOCCAL 20-VAL CONJ-DIP CRM 0.5ML IM ONE (12:27)
[2024-08-09 13:21] VITALS: BP 141/60; PULSE 72; TEMP 98.8; O2SAT 98
[2024-08-09 15:15] LABS: ANISOCYTOSIS 1+; PLATELET ESTIMATE NORMAL
== END 2024-08-09 13:45 | disposition home or self-care (01) | DRG 682 ==
LOC: ER 11:28 → 6WST 13:13 → EDBEDREQTM 13:19 → EDBEDREQ 13:19 → ENRESERV 14:19
PROVIDERS: ADMIT Internal Medicine; ATTEND Internal Medicine
PROC: 30233N1 Transfusion of Nonautologous Red Blood Cells into Peripheral Vein, Percutaneous Approach (ICD-10-PCS; principal; 2024-08-07)
PROC: 5A1D70Z Performance of Urinary Filtration, Intermittent, Less than 6 Hours Per Day (ICD-10-PCS; 2024-08-08)
DX: I12.0 Hypertensive chronic kidney disease with stage 5 chronic kidney disease or end stage renal disease (principal); N18.6 End stage renal disease; E11.319 Type 2 diabetes mellitus with unspecified diabetic retinopathy without macular edema; Z99.2 Dependence on renal dialysis; D63.8 Anemia in other chronic diseases classified elsewhere; E11.22 Type 2 diabetes mellitus with diabetic chronic kidney disease; H54.8 Legal blindness, as defined in USA; T24.002A Burn of unspecified degree of unspecified site of left lower limb, except ankle and foot, initial encounter; Z86.73 Personal history of transient ischemic attack (TIA), and cerebral infarction without residual deficits; Z79.899 Other long term (current) drug therapy; X08.8XXA Exposure to other specified smoke, fire and flames, initial encounter; Y93.89 Activity, other specified; Y92.89 Other specified places as the place of occurrence of the external cause; Y99.8 Other external cause status
CPT/HCPCS: 36415; 80048; 82550; 82553; 83735; 84100; 84439; 84443; 84484; 85014; 85018; 85025; 86850; 86900; 86920; 90732; 90935; 93005; 99291; J0885; P9016

== ENCOUNTER → 2024-12-26 | Day surgery (SDC) | payer MEDICARE, MEDICAID ==
[~2024-12-26] VITALS: Ht 177.8 cm; Wt 86.2 kg
[~2024-12-26] MED LIST changes: +ACETAMINOPHEN 1,000MG/100ML PREMIX IV PRN; -AMLO5TAB88 PO; +ASPI-1406 PO; -ASPI-1497 MT; +BACITRACIN 14GM TUBE TOP ONE; -BO1 TP; +BUPIVACAINE HCL/PF 0.5% (5MG/ML) 10ML ONE; -CEPH500C2 MT; +CLOP-31 PO; +DESMOPRESSIN ACETATE IV ONE; +EMPA10TA PO; +FAMOTIDINE 20MG/2ML VIAL IV ONE; +FAMOTIDINE 20MG/2ML VIAL IV PRN; +FENTANYL CITRATE/PF 50MCG/ML 2ML VIAL ONE; +FERR-63 PO; +FOLI-43 PO; +GLYCOPYRROLATE 0.2 MG/ML 2ML VIAL ONE; +HEPARIN SODIUM 1,000 UNIT/1ML VIAL IV ONE; +HYDRALAZINE 20MG/ML VIAL IV PRN; +HYDROMORPHONE HCL/PF 1MG/ML INJ IV PRN; +LABETALOL 5MG/ML 4ML INJ IV PRN; +LIDOCAINE HCL 1% 20ML VIAL ONE; -LISI20TA31 PO; +LORAZEPAM 2MG/ML UD SYRINGE IV ONE; +MEPERIDINE HCL/PF 25MG/ML CPJ IV PRN; +MIDAZOLAM HCL 2 MG/2 ML VIAL ONE; +MIDO5TAB4 PO; +ONDANSETRON HCL 4MG/2ML INJ IV PRN; +POLYMYXIN B SULFATE 500000 UNITS/VIAL ONE; +PROPOFOL 200MG/20ML VIAL IV ONE; +SACU1TAB PO; +SEVE800T8 PO; +SODIUM CHLORIDE 0.9% IV ONE; +THROMBIN (BOVINE) 5000 UNITS/VIAL TOP ONE
[2024-12-26 09:40] LABS: BASOPHILS % 1.1 % (0.0-2.0); EOSINOPHILS % 3.7 % (0.0-5.0); HEMATOCRIT. 24.9 % (42.0-52.0); HEMOGLOBIN. 8.7 g/dL (14.0-18.0); LYMPHOCYTES % 11.5 % (20.0-50.0); MEAN PLATELET VOLUME 6.1 fl (7.4-10.4); MONOCYTES % 6.5 % (2.0-8.0); NEUTROPHILS % 77.2 % (40.0-76.0); PLATELET 156 x1000/uL (130-400); RED BLOOD CELL COUNT 2.72 mill/uL (4.7-6.1); RED CELL DISTRIBUTION WIDTH 15.1 % (11.6-14.6)
[2024-12-26 09:52] LABS: UREA NITROGEN BLOOD 35.0 mg/dL (9-23)
[2024-12-26 09:53] LABS: INR 1.1
[2024-12-26 10:09] LABS: CREATININE 7.4 mg/dL (0.6-1.3)
[2024-12-26] MEDS: SODIUM CHLORIDE 0.9% 500 ML IV SCH (10:38)
[2024-12-26] MEDS: DESMOPRESSIN ACETATE IVPB 26 MCG in SODIUM CHLORIDE 0.9% 50 ML IV SCH (15:18)
== END | disposition home or self-care (01) ==
LOC: OR 08:55
PROVIDERS: ATTEND Surgery Vascular Surgery
DX: I12.0 Hypertensive chronic kidney disease with stage 5 chronic kidney disease or end stage renal disease (principal); E11.22 Type 2 diabetes mellitus with diabetic chronic kidney disease; N18.6 End stage renal disease; I25.10 Atherosclerotic heart disease of native coronary artery without angina pectoris; E78.5 Hyperlipidemia, unspecified; Z86.2 Personal history of diseases of the blood and blood-forming organs and certain disorders involving the immune mechanism; Z79.82 Long term (current) use of aspirin; Z79.84 Long term (current) use of oral hypoglycemic drugs; Z98.890 Other specified postprocedural states
CPT/HCPCS: 36832; 80048; 85025; 85610; 85730; 36415; 88305; 93005; C1768; J3010; J0665; J2597; J1308; J3490 ×3; J1644; J2003; J2250; J2704; J7050; C1757; J2060